=== PATIENT | male | born 1995 | race African-American/Black ===

== ENCOUNTER 2016-10-25 15:59 | Emergency (ER) | payer MEDICAID ==
[~2016-10-25] VITALS: Ht 180.3 cm; Wt 75.0 kg
[~2016-10-25 15:59] MED LIST: ACYC400T PO; HIVPAK
[2016-10-25 16:02] VITALS: BP 124/75; PULSE 85; RESP 16; TEMP 98.3; O2SAT 97
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
[2016-10-25 16:12] VITALS: RESP 16; O2SAT 97
[2016-10-25] MEDS ORDERED: SODIUM CHLORIDE 0.9% FLUSH 5 ML FLUSH IVF PRN (16:15)
[2016-10-25 16:48] LABS: AUTOMATED NEUTROPHIL # 4.2 TH/MM3 (1.8-7.7); BASOPHIL % 0.5 % (0.0-2.0); EOSINOPHIL # 0.1 TH/MM3 (0-0.4); EOSINOPHIL % 1.8 % (0.0-4.0); HEMO FLAGS DIFF FINAL; LYMPH % 20.1 % (9.0-44.0); LYMPHOCYTE # 1.2 TH/MM3 (1.0-4.8); MEAN CELL VOLUME 83.8 FL (80.0-100.0); MEAN CORPUSCULAR HEMOGLOBIN 27.9 PG (27.0-34.0); MEAN CORPUSCULAR HGB CONC 33.3 % (32.0-36.0); MONO % 4.9 % (0.0-8.0); NEUT % 72.7 % (16.0-70.0); PLATELET COUNT 236 TH/MM3 (150-450); RED BLOOD COUNT 5.13 MIL/MM3 (4.50-5.90); RED CELL DISTRIBUTION WIDTH 13.1 % (11.6-17.2); WHITE BLOOD COUNT 5.8 TH/MM3 (4.0-11.0)
[2016-10-25 17:17] LABS: ANION GAP 7 MEQ/L (5-15); BICARBONATE 29.4 MEQ/L (21.0-32.0); BLOOD UREA NITROGEN 6 MG/DL (7-18); CHLORIDE 106 MEQ/L (98-107); GLOMERULAR FILTRATION RATE 113 ML/MIN (>89); POTASSIUM 3.4 MEQ/L (3.5-5.1); SODIUM (NA) 142 MEQ/L (136-145)
[2016-10-25 17:26] LABS: AMPHETAMINE, URINE NEG (NEG); BARBITURATES, URINE NEG (NEG); COCAINE, URINE NEG (NEG)
[2016-10-25] MEDS ORDERED: LEVE500 PO (18:08)
[2016-10-25] MEDS ORDERED: POTASSIUM CHLORIDE 10 MEQ CONTROLLED RELEASE TAB PO ONE (18:15)
[2016-10-25] MEDS ORDERED: levETIRAcetam 500 MG TAB PO ONE (18:15)
[2016-10-25 18:31] VITALS: BP 126/78; PULSE 93; RESP 18; O2SAT 99
[2016-10-25] MEDS ORDERED: LEVE500S PO (18:42)
[2016-10-25] MEDS ORDERED: POTASSIUM CHLORIDE 25 MEQ EFFERVESCENT TAB PO ONE (18:45)
== END 2016-10-25 20:05 | disposition home or self-care (01) ==
LOC: NEPC 15:59
DX: G40.909 Epilepsy, unspecified, not intractable, without status epilepticus (principal); K21.9 Gastro-esophageal reflux disease without esophagitis; R56.9 Unspecified convulsions
CPT/HCPCS: 80048; 80307; 80320; 85025

== ENCOUNTER 2016-12-18 06:48 | Emergency (ER) | payer MEDICAID ==
[~2016-12-18] VITALS: Ht 180.3 cm; Wt 68.0 kg
[~2016-12-18 06:48] MED LIST changes: +LEVE500 PO; +LEVE500S PO
[2016-12-18 06:50] VITALS: BP 142/67; PULSE 77; RESP 16; TEMP 98.1; O2SAT 98
[2016-12-18] MEDS ORDERED: ZOFR4TAB PO (08:20)
--- NOTE | 2016-12-18 08:23 | PD ---
HPI Chief Complaint: Chest Pain Time Seen by Provider: 07:38 Travel History International Travel<30 days: No Contact w/Intl Traveler<30days: No Traveled to known affect area: No History of Present Illness HPI This patient complains of chest pain. Duration one day. Severity is moderate. He also has some nausea. No injury. No alleviating factors denies fever or cough. PFSH Past Medical History Cardiovascular Problems: Yes (RECURRENT CHEST PAIN UNKNOWN DIAGNOSIS) Developmental Delay: No Diminished Hearing: No GERD: Yes Genitourinary: Yes (GENITAL HERPES) Immune Disorder: Yes (HIV) Musculoskeletal: Yes (BACK PAIN) Immunizations Current: No Seizures: Yes Social History Alcohol Use: No Tobacco Use: No Substance Use: No (PATIENT DENIES) Allergies-Medications (Allergen,Severity, Reaction): Coded Allergies: Tomato (Verified Allergy, Severe, 10/24/16) *MDRO Multi-Drug Resistant Organism (Verified Adverse Reaction, Unknown, ) MRSA (wound) - 09/2015 Reported Meds & Prescriptions Reported Meds & Active Scripts Active Keppra Liq (Levetiracetam) 500 Mg/5 Ml Soln 500 Mg PO BID 30 Days Keppra (Levetiracetam) 500 Mg Tab 500 Mg PO BID Acyclovir 400 Mg Tab 400 Mg PO TID 10 Days Acyclovir 400 Mg Tab 400 Mg PO TID 10 Days Reported Hiv Support Therapy Pack (Nutritional Supplements) 1 Andrea Andrea Review of Systems HENT: No: Headaches Cardiovascular: Positive: Chest Pain or Discomfort Respiratory: No: Cough Gastrointestinal: Positive: Nausea Physical Exam Narrative GENERAL: Well-nourished, well-developed patient. SKIN: Warm and dry. HEAD: Normocephalic. EYES: No scleral icterus. No injection or drainage. NECK: Supple, trachea midline. No JVD or lymphadenopathy. CARDIOVASCULAR: Regular rate and rhythm without murmurs, gallops, or rubs. RESPIRATORY: Breath sounds equal bilaterally. No accessory muscle use. GASTROINTESTINAL: Abdomen soft, non-tender, nondistended. MUSCULOSKELETAL: No cyanosis, or edema. BACK: Nontender without obvious deformity. No CVA tenderness. Data Data Last Documented VS Vital Signs Date Time Temp Pulse Resp B/P Pulse Ox O2 Delivery O2 Flow Rate FiO2 12/18/16 07:09 81 18 99 Room Air 12/18/16 06:50 98.1 142/67 Orders Ondansetron Odt (Zofran Odt) (12/18/16 08:30) MDM Medical Decision Making Medical Screen Exam Complete: Yes Emergency Medical Condition: Yes Medical Record Reviewed: Yes Differential Diagnosis Differential diagnosis includes NM, angina, pericarditis, pleurisy, GERD, anxiety. Narrative Course I have reviewed the patient's electronic medical record. Frequent visitor to the ER. He was here 10 times last year I reviewed his EKG which is normal On exam he has clear-cut reproducible chest wall tenderness Does not require further cardiac eval Supportive care discussed Gave him a dose of Zofran and prescription for same Stable for outpatient follow-up Diagnosis Primary Impression: Musculoskeletal chest pain Additional Impression: Nausea Additional Instructions: The patient was advised to follow up with their physician and return if they worsen. Med/Other Pt SpecificInfo: Prescription(s) given Scripts Ondansetron (Zofran)4 Mg Tab4 Mg PO Q6HR PRN (NAUSEA OR VOMITING) #12 TAB Ref 0 Prov:Brennan Zepeda MD 12/18/16 Disposition: 01 DISCHARGE HOME Condition: Stable Brennan Zepeda MD Dec 18, 2016 08:23
[2016-12-18] MEDS ORDERED: ONDANSETRON ODT 4 MG TAB PO ONE (08:30)
[2016-12-18 08:44] VITALS: BP 117/79
--- NOTE | 2016-12-19 20:32 | EKG ---
Date Performed: 12/18/2016 Time Performed: 07:19:43 PTAGE: 20 years EKG: Sinus rhythm NORMAL ECG PREVIOUS TRACING : 01/29/2016 18.24 Compared to prior tracing no significant change DOCTOR: Nav Grullon Interpretating Date/Time 12/19/2016 20:31:07
[2017-04-10] MEDS ORDERED: ACYC400T PO ×2 (12:19→12:27)
== END 2016-12-18 08:45 | disposition home or self-care (01) ==
LOC: NEPE 06:48
DX: R07.89 Other chest pain (principal)
CPT/HCPCS: 93005; 99283

== ENCOUNTER 2016-12-21 23:10 | Emergency (ER) | payer MEDICAID ==
[~2016-12-21] VITALS: Ht 180.3 cm; Wt 72.0 kg
[~2016-12-21 23:10] MED LIST changes: +ZOFR4TAB PO
[2016-12-21 23:12] VITALS: BP 136/76; PULSE 81; RESP 16; TEMP 98; O2SAT 98
[2016-12-22] MEDS ORDERED: NAPR500T PO (02:08)
--- NOTE | 2016-12-22 02:08 | PD ---
HPI Chief Complaint: Fall Time Seen by Provider: 00:52 Travel History International Travel<30 days: No Contact w/Intl Traveler<30days: No Traveled to known affect area: No History of Present Illness HPI This is a 20-year-old male who presents to the emergency department having gotten dizzy, slipped and fell hitting his back on the bathtub. He reports moderate severity low back pain, constant, worse with walking, improved with rest. He denies any numbness or weakness. He has no other injuries. He did not pass out. PFSH Past Medical History Cardiovascular Problems: Yes (RECURRENT CHEST PAIN UNKNOWN DIAGNOSIS) Developmental Delay: No Diminished Hearing: No GERD: Yes Genitourinary: Yes (GENITAL HERPES) Immune Disorder: Yes (HIV) Musculoskeletal: Yes (BACK PAIN) Immunizations Current: No Seizures: Yes Past Surgical History Surgical History: No Previous Surgery Social History Alcohol Use: No Tobacco Use: No Substance Use: No (PATIENT DENIES) Allergies-Medications (Allergen,Severity, Reaction): Coded Allergies: Tomato (Verified Allergy, Severe, 12/22/16) *MDRO Multi-Drug Resistant Organism (Verified Adverse Reaction, Unknown, ) MRSA (wound) - 09/2015 Reported Meds & Prescriptions Reported Meds & Active Scripts Active Zofran (Ondansetron HCl) 4 Mg Tab 4 Mg PO Q6HR PRN Keppra Liq (Levetiracetam) 500 Mg/5 Ml Soln 500 Mg PO BID 30 Days Keppra (Levetiracetam) 500 Mg Tab 500 Mg PO BID Acyclovir 400 Mg Tab 400 Mg PO TID 10 Days Acyclovir 400 Mg Tab 400 Mg PO TID 10 Days Reported Hiv Support Therapy Pack (Nutritional Supplements) 1 Andrea Andrea Review of Systems Except as stated in HPI: all other systems reviewed are Neg Physical Exam Narrative GENERAL:Well appearing, no acute distress SKIN: Warm and dry. HEAD: Atraumatic. Normocephalic. EYES: Pupils equal and round. No injection or drainage. ENT: Moist mucous membranes NECK: Trachea midline. CARDIOVASCULAR: Regular rate and rhythm. No murmur appreciated. RESPIRATORY: Clear to auscultation. Breath sounds equal bilaterally. GASTROINTESTINAL: Abdomen soft, non-tender, nondistended. MUSCULOSKELETAL: Tender to palpation along the midline lumbar spine NEUROLOGICAL: Awake and alert. No obvious cranial nerve deficits. Moving all extremities. PSYCHIATRIC: Appropriate mood and affect; insight and judgment normal. Data Data Last Documented VS Vital Signs Date Time Temp Pulse Resp B/P Pulse Ox O2 Delivery O2 Flow Rate FiO2 12/22/16 00:49 14 12/21/16 23:12 98.0 81 136/76 98 Room Air Orders Spine, Lumbar - Ltd (Ap & Lat) (12/22/16 ) MDM Medical Decision Making Medical Screen Exam Complete: Yes Emergency Medical Condition: Yes Interpretation(s) Afebrile, no tachycardia, normotensive Lumbar spine plain film: No acute fracture Differential Diagnosis Compression fracture, spinous process fracture, contusion Narrative Course This is a 20-year-old male who presents to the emergency department having fallen injuring his low back in the shower. He is focally tender along the midline of the lumbar spine. He has a normal neurologic exam. X-ray was obtained which demonstrates no acute fracture. Patient will be discharged home. Diagnosis Primary Impression: Lumbar contusion Qualified Code: S30.0XXA - Lumbar contusion, initial encounter Patient Instructions: General Instructions Additional Instructions: If you develop weakness of your legs, difficulty walking, numbness of her legs or your genital or rectal area, loss of your bowel or bladder, or difficulty urinating return to the emergency department immediately. Followup with your primary care physician in one week if your symptoms have not improved. Med/Other Pt SpecificInfo: Prescription(s) given Scripts Naproxen 500 Mg Poi026 Mg PO BID PRN (PAIN SCALE 4 TO 10) #20 TAB Prov:Luba Cramer MD 12/22/16 Disposition: 01 DISCHARGE HOME Condition: Stable Luba Cramer MD Dec 22, 2016 02:08
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
[2017-04-10] MEDS ORDERED: ACYC400T PO ×2 (12:19→12:27)
== END 2016-12-22 02:29 | disposition home or self-care (01) ==
LOC: NEPC 23:10
DX: S30.0XXA Contusion of lower back and pelvis, initial encounter (principal); W18.2XXA Fall in (into) shower or empty bathtub, initial encounter; Y93.F9 Activity, other caregiving; Y92.9 Unspecified place or not applicable; Y99.9 Unspecified external cause status
CPT/HCPCS: 72100; 99284

== ENCOUNTER → 2017-02-03 | Outpatient (CLI) | payer MEDICAID ==
[~2017-02-03] MED LIST changes: +BACT800T5 PO; +IBUP800T23 PO; +NAPR500T PO; +PANT20 PO
--- NOTE | 2017-02-03 19:35 | MG ---
cc: GAYLE SALDIVAR M.D. Lab No: Date: 02/03/2017 Age: Sex: M Race: Cc. TEST NUMBER [id number] TECHNIQUE 17 channel EEG. DESCRIPTION The background rhythm reveals symmetrical alpha rhythm. Frequency is about 9 Hz. Amplitude is 20 microvolts. There is some eye movement artifact and some muscle artifact. There are no lateralizing features seen. No epileptiform discharges. Photic stimulation results in a symmetrical driving response. Hyperventilation does not elicit any abnormalities. During drowsiness there is some slowing in the theta range at about 6-7 Hz. INTERPRETATION Normal EEG. MD BEN Yoo/DIMAS /7:14 PM /7:32 PM
== END ==
LOC: HEEG 05:59
PROVIDERS: ATTEND Specialist
DX: R56.9 Unspecified convulsions (principal)
CPT/HCPCS: 95819

== ENCOUNTER 2017-02-20 09:17 | Emergency (ER) | payer MEDICAID ==
[~2017-02-20] VITALS: Ht 180.3 cm; Wt 73.5 kg
[~2017-02-20 09:17] MED LIST changes: -BACT800T5 PO; -IBUP800T23 PO; -PANT20 PO
[2017-02-20 09:18] VITALS: BP 120/76; PULSE 78; RESP 20; TEMP 98.5; O2SAT 97
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
[2017-02-20] MEDS ORDERED: IBUP800T23 PO (09:53)
[2017-04-10] MEDS ORDERED: ACYC400T PO ×2 (12:19→12:27)
== END 2017-02-20 10:07 | disposition home or self-care (01) ==
LOC: NEPK 09:17
DX: S00.81XA Abrasion of other part of head, initial encounter (principal); K21.9 Gastro-esophageal reflux disease without esophagitis; Z21 Asymptomatic human immunodeficiency virus [HIV] infection status; V29.9XXA Motorcycle rider (driver) (passenger) injured in unspecified traffic accident, initial encounter; Y93.89 Activity, other specified; Y92.410 Unspecified street and highway as the place of occurrence of the external cause; Y99.8 Other external cause status
CPT/HCPCS: 99282

== ENCOUNTER 2017-02-27 15:08 | Emergency (ER) | payer MEDICAID ==
[~2017-02-27] VITALS: Ht 180.3 cm; Wt 74.0 kg
[~2017-02-27 15:08] MED LIST changes: -ACYC400T PO; -HIVPAK; +IBUP800T23 PO; -LEVE500 PO; -LEVE500S PO; -NAPR500T PO; -ZOFR4TAB PO
[2017-02-27 15:10] VITALS: BP 145/83; PULSE 75; RESP 15; TEMP 98.8; O2SAT 99
--- NOTE | 2017-02-27 15:13 | PD ---
Physical Exam Date Seen by Provider: February 27, 2017 Time Seen by Provider: 15:12 Narrative 21 YOBM C/O R NECK ABSCESS FOR 5 DAYS VVS WAITING FOR BED PLACEMENT Data Data Last Documented VS Vital Signs Date Time Temp Pulse Resp B/P Pulse Ox O2 Delivery O2 Flow Rate FiO2 02/27/17 15:10 98.8 75 15 145/83 99 MDM Medical Record Reviewed: Yes Supervised Visit with ANEL: No Nate Alcaraz February 27, 2017 15:13
--- NOTE | 2017-02-27 15:16 | PD ---
HPI . hair bump x 5 days Chief Complaint: Laceration/Skin Injury Time Seen by Provider: 15:16 Travel History International Travel<30 days: No Contact w/Intl Traveler<30days: No Traveled to known affect area: No History of Present Illness HPI 21-year-old male with seizure disorder here with complaints of a hair bump on the right side of his cheek for the past 5 days. He tells me that his roommate tried to pop it and not much really came out of it. He is here because it is now causing pain radiating into his mouth when he is eating. He denies any fever or chills. He has no other complaints. He does use clippers to cut his facial hairs. PFSH Past Medical History Cardiovascular Problems: Yes (RECURRENT CHEST PAIN UNKNOWN DIAGNOSIS) Developmental Delay: No Diminished Hearing: No GERD: Yes Genitourinary: Yes (GENITAL HERPES) Immune Disorder: Yes (HIV) Musculoskeletal: Yes (BACK PAIN) Immunizations Current: No Seizures: Yes Social History Alcohol Use: No Tobacco Use: No Substance Use: No ( ) Allergies-Medications (Allergen,Severity, Reaction): Coded Allergies: Tomato (Verified Allergy, Severe, 02/27/17) *MDRO Multi-Drug Resistant Organism (Verified Adverse Reaction, Unknown, ) MRSA (wound) - 09/2015 Reported Meds & Prescriptions Reported Meds & Active Scripts Active Bactrim DS (Sulfamethoxazole-Trimethoprim) 800-160 Mg Tab 1 Tab PO BID Ibuprofen 800 Mg Tab 800 Mg PO TID Review of Systems General / Constitutional: No: Fever Eyes: No: Visual changes HENT: No: Headaches Cardiovascular: No: Chest Pain or Discomfort Respiratory: No: Shortness of Breath Gastrointestinal: No: Abdominal Pain Genitourinary: No: Dysuria Musculoskeletal: No: Pain Skin: Positive Other (right sided face cellulitis/early abscess), No Rash Neurologic: No: Weakness Psychiatric: No: Depression Endocrine: No: Polydipsia Hematologic/Lymphatic: No: Easy Bruising Physical Exam Narrative GENERAL: AAO x 3, no acute distress, Well-nourished, well-developed patient. SKIN: Warm and dry. No visible rashes or bruising. Small 1 cm induration on the right lower jaw without any fluctuance. There is no drainage present. There is a small opening with clotting blood. no temperature variation/ no surrounding erythema HEAD: Normocephalic and atraumatic. EYES: No scleral icterus. No injection or drainage. EOM intact, PERRLA ENT: No nasal drainage noted. Mucous membranes pink. Airway patent. oropharynx without any acute abn NECK: Supple, trachea midline. No JVD. no lymphadenopathy CARDIOVASCULAR: Regular rate and rhythm without murmurs, gallops, or rubs. RESPIRATORY: Breath sounds equal bilaterally. No accessory muscle use. No rhonchi or rales. GASTROINTESTINAL: Visual inspection normal EXTREMITIES: No cyanosis or edema. BACK: Nontender without obvious deformity. No CVA tenderness. PSYCH: AAO x 3, normal affect. Data Data Last Documented VS Vital Signs Date Time Temp Pulse Resp B/P Pulse Ox O2 Delivery O2 Flow Rate FiO2 02/27/17 15:10 98.8 75 15 145/83 99 MDM Medical Decision Making Medical Screen Exam Complete: Yes Emergency Medical Condition: Yes Medical Record Reviewed: Yes Differential Diagnosis Facial cellulitis, early abscess, less likely abscess, Folliculitis Narrative Course This is a 21-year-old male here with what appears to be a folliculitis and possible early abscess formation. I discussed these findings with him. Unfortunately there is nothing for incision and drainage. Advise warm compresses to see if anything forms. If it does, patient will return to the emergency department. In the meantime I will provide him with Bactrim to cover MRSA. I advised [id number] Tylenol and Motrin as needed for pain. Patient verbalized understanding of instructions, questions were answered, and thanked me for their care. I advised them if their condition worsens, please return to the nearest emergency room for further care. Diagnosis Primary Impression: Folliculitis Additional Impression: Cellulitis Qualified Code: L03.211 - Cellulitis of face Patient Instructions: General Instructions Additional Instructions: You can try to use warm compresses to the area to see if a head develops. If it does, you can come back to the emergency department to have it drained. [place] for worsening signs of infection which include fever, increased redness , increased warmth, purulent drainage, increased swelling or streaking. If any of these develop, please go to the nearest emergency room. Please return to emergency department if your symptoms return or worsen. Follow up with your primary care provider. Take medications as prescribed. You can use ibuprofen or tylenol as needed for pain. Med/Other Pt SpecificInfo: Prescription(s) given Scripts Sulfamethoxazole-Trimethoprim (Bactrim DS)800-160 Mg Tab1 Tab PO BID #20 TAB Prov:Brennan Zepeda MD 02/27/17 Disposition: 01 DISCHARGE HOME Condition: Stable Karrie Juan February 27, 2017 15:16
[2017-02-27] MEDS ORDERED: BACT800T5 PO (15:19)
[2017-04-10] MEDS ORDERED: ACYC400T PO ×2 (12:19→12:27)
== END 2017-02-27 15:31 | disposition home or self-care (01) ==
LOC: NEPK 15:08
DX: L73.9 Follicular disorder, unspecified (principal); L03.211 Cellulitis of face
CPT/HCPCS: 99282

== ENCOUNTER 2017-04-07 10:22 | Emergency (ER) | payer MEDICAID ==
[~2017-04-07] VITALS: Ht 180.3 cm; Wt 70.0 kg
[~2017-04-07 10:22] MED LIST changes: +BACT800T5 PO; -IBUP800T23 PO
[2017-04-07 10:23] VITALS: BP 135/74; PULSE 84; RESP 15; TEMP 98.2; O2SAT 98
--- NOTE | 2017-04-07 11:01 | PD ---
HPI Chief Complaint: Abdominal Pain Time Seen by Provider: 11:01 Travel History International Travel<30 days: No Contact w/Intl Traveler<30days: No Traveled to known affect area: No History of Present Illness HPI 21-year-old male came to the emergency room with history of abdominal pain in the periumbilical and epigastric area. Patient says that this has been going on for past 2 days. No history of vomiting or diarrhea. However when he went to the restroom this morning he also noticed 2 bumps on his penis which also made him concerned and that's the additional history wanted to be addressed as well. Vital signs otherwise stable. Patient claims to be otherwise a healthy person. [facility] Past Medical History Narrative Medical List of his past medical, surgical, social and family history was reviewed from the nursing note. Cardiovascular Problems: Yes (RECURRENT CHEST PAIN UNKNOWN DIAGNOSIS) Developmental Delay: No Diminished Hearing: No GERD: Yes Genitourinary: Yes (GENITAL HERPES) Immune Disorder: Yes (HIV) Musculoskeletal: Yes (BACK PAIN) Immunizations Current: No Seizures: Yes ?: Not Social History Alcohol Use: No Tobacco Use: No Substance Use: No ( ) Allergies-Medications (Allergen,Severity, Reaction): Coded Allergies: Tomato (Verified Allergy, Severe, 03/02/17) *MDRO Multi-Drug Resistant Organism (Verified Adverse Reaction, Unknown, ) MRSA (wound) - 09/2015 Comments List of his allergies reviewed from the nursing note. Reported Meds & Prescriptions Reported Meds & Active Scripts Active Protonix (Pantoprazole Sodium) 20 Mg Tab 20 Mg PO DAILY Bactrim DS (Sulfamethoxazole-Trimethoprim) 800-160 Mg Tab 1 Tab PO BID Narrative Medication List of his home medications reviewed from the nursing note Review of Systems Except as stated in HPI: all other systems reviewed are Neg Physical Exam Narrative GENERAL: Awake, alert, anxious SKIN: Focused skin assessment warm/dry. HEAD: Atraumatic. Normocephalic. EYES: Pupils equal and round. No scleral icterus. No injection or drainage. ENT: No nasal bleeding or discharge. Mucous membranes pink and moist. NECK: Trachea midline. No JVD. CARDIOVASCULAR: Regular rate and rhythm. No murmur appreciated. RESPIRATORY: No accessory muscle use. Clear to auscultation. Breath sounds equal bilaterally. GASTROINTESTINAL: Abdomen soft, non-tender, nondistended. Hepatic and splenic margins not palpable. : Patient has some bumpy papules on the glans penis on the side to the posterior part. No discharge and these are nontender. MUSCULOSKELETAL: No obvious deformities. No clubbing. No cyanosis. No edema. NEUROLOGICAL: Awake and alert. No obvious cranial nerve deficits. Motor grossly within normal limits. Normal speech. PSYCHIATRIC: Appropriate mood and affect; insight and judgment normal. Data Data Last Documented VS Vital Signs Date Time Temp Pulse Resp B/P Pulse Ox O2 Delivery O2 Flow Rate FiO2 04/07/17 10:23 98.2 84 15 135/74 98 Orders Urinalysis - C+S If Indicated (04/07/17 10:32) Gc And Chlamydia Pcr (04/07/17 11:05) Labs Laboratory Tests Test 04/07/17 04/07/17 10:37 11:30 Urine Color YELLOW Urine Turbidity CLEAR Urine pH 6.5 Urine Specific [place] 1.022 Urine Protein NEG mg/dL Urine Glucose (UA) NEG mg/dL Urine Ketones NEG mg/dL Urine Occult Blood NEG Urine Nitrite NEG Urine Bilirubin NEG Urine Urobilinogen 2.0 MG/DL Urine Leukocyte Esterase NEG Urine RBC 1 /hpf Urine WBC 1 /hpf Urine Mucus FEW /lpf Microscopic Urinalysis Comment CULT NOT INDICATED Chlamydia trachomatis DNA DETECTED (PCR) Neisseria gonorrhoeae DNA NOT DETECTED (PCR) MDM Medical Decision Making Medical Screen Exam Complete: Yes Emergency Medical Condition: Yes Medical Record Reviewed: Yes Differential Diagnosis Pearly penile papule, gastritis Narrative Course 11:30 AM UA is back and within normal limit. Patient will be discharged home. Procedures EKG Prior to Arrival: No Diagnosis Primary Impression: Pearly penile papules Additional Impression: Gastritis Qualified Code: K29.00 - Acute gastritis without hemorrhage, unspecified gastritis type Referrals: Primary Care Physician Additional Instructions: Please return to the ER if the condition worsens or any other new concerns. With your primary care. Do not drink alcohol, acidic food-like lemonade, orange juice, lying, tomato, ketchup, strawberries etc. till the medication is completed. If symptoms do not worsen or have your primary care for you to a GI specialist. Take the medication as per the prescription direction. Med/Other Pt SpecificInfo: Prescription(s) given Scripts Pantoprazole (Protonix)20 Mg Tab20 Mg PO DAILY #30 TAB Ref 0 Prov:Agueda Skelton MD 04/07/17 Disposition: 01 DISCHARGE HOME Condition: Stable Agueda Skelton MD Apr 07, 2017 11:01
[2017-04-07 11:07] LABS: BLOOD, URINE NEG (NEG); COMMENT (UR) CULT NOT INDICATED; CULTURE IF INDICATED CULT NOT INDICATED; GLUCOSE,URINE NEG (NEG); KETONE, URINE NEG (NEG); MUCUS URINE FEW /lpf (OCC); NITRITE,URINE NEG (NEG); PH, URINE 6.5 (5.0-8.5); URINE COLOR YELLOW (YELLW/STRAW)
[2017-04-07] MEDS ORDERED: PANT20 PO (11:35)
[2017-04-07 13:39] LABS: CHLAMYDIA PCR DETECTED (NOT DETECT); NEISSERIA PCR NOT DETECTED (NOT DETECT)
[2017-04-10] MEDS ORDERED: ACYC400T PO ×2 (12:19→12:27)
== END 2017-04-07 11:58 | disposition home or self-care (01) ==
LOC: NEPD 10:22
DX: K29.00 Acute gastritis without bleeding (principal); R23.8 Other skin changes
CPT/HCPCS: 81001; 87491; 87591; 99283

== ENCOUNTER → 2017-04-21 | Outpatient (CLI) | payer MEDICAID ==
[~2017-04-21] MED LIST changes: +ACYC400T PO; +PANT20 PO
--- NOTE | 2017-04-21 17:22 | RADRPT ---
EXAM DATE/TIME: 04/21/2017 16:27 [facility] COMPARISON: MRI BRAIN W & W/O CONTRAST, April 15, 2015, 8:38. INDICATIONS : Cephalgia. MEDICAL HISTORY : HIV. Seizures. SURGICAL HISTORY : None. ENCOUNTER: Initial ACUITY: 1 day PAIN SCORE: 5/10 LOCATION: cranial TECHNIQUE: Multiplanar, multisequence MRI of the brain was performed without contrast. FINDINGS: CEREBRUM: The ventricles are normal for age. No evidence of midline shift, mass lesion, hemorrhage or acute in farction. No extraaxial fluid collections are seen. The pituitary gland and suprasellar cistern are normal in configuration. WHITE MATTER: No significant signal abnormalities are seen in the white matter. POSTERIOR FOSSA: The cerebellum and brainstem are intact. The 4th ventricle is midline. The cerebellopontine angle is unremarkable. The cerebellar tonsils are normal in position. DIFFUSION IMAGING: No focal areas of restricted diffusion are seen. No evidence of acute infarction. EXTRACRANIAL: The visualized portions of the orbits and paranasal sinuses are unremarkable. CONCLUSION: 1. No acute intracranial abnormality. Terence Lopez MD on April 21, 2017 at 17:18 Board Certified Radiologist. This report was verified electronically.
== END ==
LOC: HRAD 15:35
PROVIDERS: ATTEND Specialist
DX: R51 Headache (principal); Z21 Asymptomatic human immunodeficiency virus [HIV] infection status
CPT/HCPCS: 70551

== ENCOUNTER 2017-07-14 14:23 | Emergency (ER) | payer MEDICAID ==
[~2017-07-14] VITALS: Ht 180.3 cm; Wt 70.0 kg
[~2017-07-14 14:23] MED LIST changes: -BACT800T5 PO; +MUPI2OIN TOPICAL; +ZITHTAB2 PO
[2017-07-14 14:32] VITALS: BP 123/61; PULSE 83; RESP 16; TEMP 98.6; O2SAT 98
[2017-07-14] MEDS ORDERED: LEVE500S PO ×2 (14:36→16:35)
[2017-07-14] MEDS ORDERED: SODIUM CHLOR 0.9% 1000 ML INJ 1,000 ML IV ONE (14:56)
[2017-07-14] MEDS ORDERED: SODIUM CHLORIDE 0.9% FLUSH 10 ML FLUSH IVF PRN (15:00)
[2017-07-14] MEDS ORDERED: LORazepam 2 MG/ML VIAL IVS ONE (15:00)
[2017-07-14] MEDS ORDERED: levETIRAcetam 1000 MG INJ 100 ML IV ONE (15:00)
--- NOTE | 2017-07-14 15:02 | PD ---
Physical Exam Date Seen by Provider: Jul 14, 2017 Time Seen by Provider: 15:00 Narrative 21-year-old Afro-[place]ian male with history of seizure disorder normally treated with Keppra brought in by EMS status post grand mal seizure. Patient states he has been off his Keppra for 3 weeks as he gave and the pill form not the liquid form. Patient is complaining of right facial pain, but denies dental injury or biting of the tongue or cheek. He states he is overall sore but otherwise has no acute injury. He was brought in backboarded and collared. He is not complaining of back pain or neck pain. Patient has a history of MRSA and is allergic to tomatoes. Data Data Last Documented VS Vital Signs Date Time Temp Pulse Resp B/P (MAP) Pulse Ox O2 Delivery O2 Flow Rate FiO2 07/14/17 14:32 98.6 83 16 123/61 (81) 98 Orders Orders Complete Blood Count With Diff (07/14/17 14:56) Drug Screen, Random Urine (07/14/17 14:56) Electrocardiogram (07/14/17 ) Ecg Monitoring (07/14/17 14:56) Iv Access Insert/Monitor (07/14/17 14:56) Oximetry (07/14/17 14:56) Comprehensive Metabolic Panel (07/14/17 14:56) Sodium Chlor 0.9% 1000 Ml Inj (Ns 1000 M (07/14/17 14:56) Sodium Chloride 0.9% Flush (Ns Flush) (07/14/17 15:00) Lorazepam Inj (Ativan Inj) (07/14/17 15:00) Urinalysis - C+S If Indicated (07/14/17 14:56) Ct Facial Bones W/O Iv Cont (07/14/17 14:56) Lactic Acid (07/14/17 14:56) Levetiracetam 1000 Mg Inj (Keppra 1000 M (07/14/17 15:00) MDM Medical Record Reviewed: Yes Supervised Visit with ANEL: Yes Differential Diagnosis Seizure. Facial contusion. Possible fracture. Narrative Course Patient is medically stable at time of exam. Labs ordered including CBC, CMP, urinalysis, drug screen, and lactic acid. CT of the facial bones ordered. CT of the brain is not felt warranted. IV access is obtained patient is given 1 mg lorazepam IV as well as 1000 mg Keppra IV. Patient is awaiting bed placement. Condition: Stable Tlaon Duran Jul 14, 2017 15:02
[2017-07-14 15:33] LABS: AUTOMATED NEUTROPHIL # 1.9 TH/MM3 (1.8-7.7); BASOPHIL % 0.5 % (0.0-2.0); EOSINOPHIL # 0.1 TH/MM3 (0-0.4); EOSINOPHIL % 3.9 % (0.0-4.0); HEMATOCRIT 42.7 % (39.0-51.0); HEMO FLAGS DIFF FINAL; LYMPH % 31.9 % (9.0-44.0); LYMPHOCYTE # 1.1 TH/MM3 (1.0-4.8); MEAN CELL VOLUME 85.2 FL (80.0-100.0); MEAN CORPUSCULAR HGB CONC 32.8 % (32.0-36.0); MONO % 10.8 % (0.0-8.0); NEUT % 52.9 % (16.0-70.0); PLATELET COUNT 227 TH/MM3 (150-450); RED BLOOD COUNT 5.01 MIL/MM3 (4.50-5.90); RED CELL DISTRIBUTION WIDTH 13.6 % (11.6-17.2); WHITE BLOOD COUNT 3.5 TH/MM3 (4.0-11.0)
--- NOTE | 2017-07-14 15:53 | RADRPT ---
EXAM DATE/TIME: 07/14/2017 15:14 [facility] COMPARISON: No previous studies available for comparison. INDICATIONS : Seizure today hit right side of face,bruising and abraisions. RADIATION DOSE: 36.48 CTDIvol (mGy) MEDICAL HISTORY : Seizures. Cardiovascular disease HIV. SURGICAL HISTORY : None. ENCOUNTER: Initial ACUITY: 1 day PAIN SCORE: 7/10 LOCATION: facial TECHNIQUE: Volumetric scanning of the facial bones was performed. Using automated exposure control and adjustme nt of the mA and/or kV according to patient size, radiation dose was kept as low as reasonably achiev able to obtain optimal diagnostic quality images. DICOM format image data is available electronicall y for review and comparison. FINDINGS: ORBITS: The orbital and infraorbital osseous structures are intact. The retroconal structures have a normal configuration. No radiopaque foreign bodies are seen. NASAL BONE: The nasal bone and maxillary spine are intact ZYGOMATIC ARCHES: Symmetric without evidence of fracture. SINUSES: The maxillary, ethmoid and frontal sinuses are intact. No air-fluid levels seen. NASAL CAVITY: The nasal septum is intact and midline. The lacrimal ducts are intact. SOFT TISSUES: No radiopaque foreign bodies seen. No soft-tissue swelling is seen. INTRACRANIAL: No intracranial air seen. CRIBIFORM PLATE: Grossly intact. CONCLUSION: 1. No acute facial fractures. Justin Banda MD on July 14, 2017 at 15:50 Board Certified Radiologist. This report was verified electronically.
[2017-07-14 15:58] LABS: ALT (GPT) 21 U/L (9-52); ANION GAP 4 MEQ/L (5-15); AST (GOT) 21 U/L (15-39); BICARBONATE 27.7 MEQ/L (21.0-32.0); BLOOD UREA NITROGEN 4 MG/DL (7-18); CHLORIDE 106 MEQ/L (98-107); GLOMERULAR FILTRATION RATE 117 ML/MIN (>89); POTASSIUM 3.8 MEQ/L (3.5-5.1); SODIUM (NA) 138 MEQ/L (136-145)
[2017-07-14 16:00] LABS: ALKALINE PHOSPHATASE 64 U/L (45-117); TOTAL BILIRUBIN ADULT 0.8 MG/DL (0.2-1.0)
[2017-07-14 16:01] VITALS: BP 110/60; PULSE 82; PULSE 84; RESP 18; O2SAT 98
[2017-07-14 16:18] LABS: BLOOD, URINE NEG (NEG); COMMENT (UR) CULT NOT INDICATED; CULTURE IF INDICATED CULT NOT INDICATED; GLUCOSE,URINE NEG (NEG); KETONE, URINE NEG (NEG); MUCUS URINE FEW /lpf (OCC); NITRITE,URINE NEG (NEG); PH, URINE 8.5 (5.0-8.5); URINE COLOR YELLOW (YELLW/STRAW)
--- NOTE | 2017-07-14 16:45 | PD ---
HPI Chief Complaint: Seizure Time Seen by Provider: 15:08 Travel History International Travel<30 days: No Contact w/Intl Traveler<30days: No Traveled to known affect area: No History of Present Illness HPI 21-year-old male that presents to the ED for evaluation of seizure. Patient apparently was found on the floor by bystanders. Patient does have a history of seizures and takes Keppra. Patient reports that he's been off his medication because he was prescribed pills instead of the liquid medication and he has not taken anything for about 3 weeks. Per patient she last had a seizure about a week ago and was seen at [facility] but per patient he was not given any medications. He denies any other medical issues. Seizure lasted possibly a couple minutes. He reports some pain in his right cheek otherwise unremarkable. No fevers chills or sweats. No chest pain or back pain. This does feel somewhat weak but he is back to baseline. Per ambulance report he was somewhat confused but not his back to baseline. The patient his pain is 2 out of 10. No other medical issues. PFSH Past Medical History Cardiovascular Problems: Yes (RECURRENT CHEST PAIN UNKNOWN DIAGNOSIS) Developmental Delay: No Diminished Hearing: No GERD: Yes Genitourinary: Yes (GENITAL HERPES) Immune Disorder: Yes (HIV) Musculoskeletal: Yes (BACK PAIN) Immunizations Current: No Seizures: Yes Tetanus Vaccination: > 5 Years Past Surgical History Surgical History: No Previous Surgery Social History Alcohol Use: No Tobacco Use: No Substance Use: No ( ) Allergies-Medications (Allergen,Severity, Reaction): Coded Allergies: tomato (Unverified Allergy, Severe, 07/14/17) *MDRO Multi-Drug Resistant Organism (Verified Adverse Reaction, Unknown, 07/14/17) MRSA (wound) - 09/2015 Reported Meds & Prescriptions Reported Meds & Active Scripts Active Keppra Liq (Levetiracetam) 500 Mg/5 Ml Soln 500 Mg PO BID Review of Systems Except as stated in HPI: all other systems reviewed are Neg Physical Exam Narrative GENERAL: SKIN: Warm and dry. HEAD: Atraumatic. Normocephalic. EYES: Pupils equal and round. No scleral icterus. No injection or drainage. ENT: No nasal bleeding or discharge. Mucous membranes pink and moist. Tongue is midline. No uvula deviation. NECK: Trachea midline. No JVD. CARDIOVASCULAR: Regular rate and rhythm. No murmurs, S3, S4. RESPIRATORY: No accessory muscle use. Clear to auscultation. Breath sounds equal bilaterally. GASTROINTESTINAL: Abdomen soft, non-tender, nondistended. Hepatic and splenic margins not palpable. MUSCULOSKELETAL: Extremities without clubbing, cyanosis, or edema. No obvious deformities. Full range of motion of the upper and lower extremities bilaterally. 2+ pulses bilaterally. NEUROLOGICAL: Awake and alert. No obvious cranial nerve deficits. Motor grossly within normal limits. Five out of 5 muscle strength in the arms and legs. Normal speech. PSYCHIATRIC: Appropriate mood and affect; insight and judgment normal. Data Data Last Documented VS Vital Signs Date Time Temp Pulse Resp B/P (MAP) Pulse Ox O2 Delivery O2 Flow Rate FiO2 07/14/17 16:01 82 18 110/60 (77) 98 Room Air 07/14/17 14:32 98.6 Orders Orders Complete Blood Count With Diff (07/14/17 14:56) Drug Screen, Random Urine (07/14/17 14:56) Electrocardiogram (07/14/17 ) Ecg Monitoring (07/14/17 14:56) Iv Access Insert/Monitor (07/14/17 14:56) Oximetry (07/14/17 14:56) Comprehensive Metabolic Panel (07/14/17 14:56) Sodium Chlor 0.9% 1000 Ml Inj (Ns 1000 M (07/14/17 14:56) Sodium Chloride 0.9% Flush (Ns Flush) (07/14/17 15:00) Lorazepam Inj (Ativan Inj) (07/14/17 15:00) Urinalysis - C+S If Indicated (07/14/17 14:56) Ct Facial Bones W/O Iv Cont (07/14/17 14:56) Lactic Acid (07/14/17 14:56) Levetiracetam 1000 Mg Inj (Keppra 1000 M (07/14/17 15:00) Labs Laboratory Tests Test 07/14/17 15:00 07/14/17 15:45 White Blood Count 3.5 TH/MM3 Red Blood Count 5.01 MIL/MM3 Hemoglobin 14.0 GM/DL Hematocrit 42.7 % Mean Corpuscular Volume 85.2 FL Mean Corpuscular Hemoglobin 28.0 PG Mean Corpuscular Hemoglobin Concent 32.8 % Red Cell Distribution Width 13.6 % Platelet Count 227 TH/MM3 Mean Platelet Volume 8.5 FL Neutrophils (%) (Auto) 52.9 % Lymphocytes (%) (Auto) 31.9 % Monocytes (%) (Auto) 10.8 % Eosinophils (%) (Auto) 3.9 % Basophils (%) (Auto) 0.5 % Neutrophils # (Auto) 1.9 TH/MM3 Lymphocytes # (Auto) 1.1 TH/MM3 Monocytes # (Auto) 0.4 TH/MM3 Eosinophils # (Auto) 0.1 TH/MM3 Basophils # (Auto) 0.0 TH/MM3 CBC Comment DIFF FINAL Differential Comment Blood Urea Nitrogen 4 MG/DL Creatinine 0.99 MG/DL Random Glucose 93 MG/DL Total Protein 9.2 GM/DL Albumin 3.8 GM/DL Calcium Level 8.7 MG/DL Alkaline Phosphatase 64 U/L Aspartate Amino Transf (AST/SGOT) 21 U/L Alanine Aminotransferase (ALT/SGPT) 21 U/L Total Bilirubin 0.8 MG/DL Sodium Level 138 MEQ/L Potassium Level 3.8 MEQ/L Chloride Level 106 MEQ/L Carbon Dioxide Level 27.7 MEQ/L Anion Gap 4 MEQ/L Estimat Glomerular Filtration Rate 117 ML/MIN Lactic Acid Level 1.3 mmol/L Urine Color YELLOW Urine Turbidity CLEAR Urine pH 8.5 Urine Specific [place] 1.028 Urine Protein 30 mg/dL Urine Glucose (UA) NEG mg/dL Urine Ketones NEG mg/dL Urine Occult Blood NEG Urine Nitrite NEG Urine Bilirubin NEG Urine Urobilinogen 4.0 MG/DL Urine Leukocyte Esterase SMALL Urine RBC 1 /hpf Urine WBC 5 /hpf Urine Mucus FEW /lpf Microscopic Urinalysis Comment CULT NOT INDICATED Urine Opiates Screen NEG Urine Barbiturates Screen NEG Urine Amphetamines Screen NEG Urine Benzodiazepines Screen NEG Urine Cocaine Screen NEG Urine Cannabinoids Screen NEG MDM Medical Decision Making Medical Screen Exam Complete: Yes Emergency Medical Condition: Yes Medical Record Reviewed: Yes Interpretation(s) CBC & BMP Diagram 07/14/17 15:00 Total Protein 9.2 H, Albumin 3.8, Calcium Level 8.7, Alkaline Phosphatase 64, Aspartate Amino Transf (AST/SGOT) 21, Alanine Aminotransferase (ALT/SGPT) 21, Total Bilirubin 0.8 Tox screen negative. Urine negative. CT of the facial bones show no sign of acute disease. Differential Diagnosis Seizure versus seizure disorder versus normal exam versus noncompliant Narrative Course 21-year-old male that presents to the ED for evaluation of seizure. Patient was properly examined and was found to have signs and symptoms consistent appears to be seizure. Patient at this time appears to be back to baseline. Labs were drawn. Labs were essentially unremarkable. Patient was initially seen by Talon Duran PA-C. Please refer to his note. I was asked to disposition patient pending labs and imaging. Labs and imaging here essentially unremarkable. Patient pressure. Patient was given loading dose of Keppra here. He was given a prescription for liquid keppra. Told to follow with neurologist outpatient. See ED worsening symptoms. Tylenol for pain. Seizure precautions were counseled to the patient. Diagnosis Primary Impression: Seizure disorder Patient Instructions: General Instructions Additional Instructions: Taking medication as prescribed. Follow with PCP. See ED if worsening symptoms. Do not drive for the next 6 months. Do not operate heavy machinery or get on a ladder. Med/Other Pt SpecificInfo: Prescription(s) given Scripts Levetiracetam Liq (Keppra Liq) 500 Mg/5 Ml Soln 500 MG PO BID for Control Seizures, #300 ML 0 Refills Prov: Hayes Salas MD 07/14/17 Disposition: 01 DISCHARGE HOME Condition: Stable Eric Dawkins Jul 14, 2017 16:45
[2017-07-14 17:28] VITALS: BP 108/56
--- NOTE | 2017-07-15 14:18 | EKG ---
Date Performed: 07/14/2017 Time Performed: 15:31:46 PTAGE: 21 years EKG: Sinus rhythm WITH SINUS ARRHYTHMIA EARLY REPOLARIZATION BORDERLINE ECG PREVIOUS TRACING : 12/18/2016 07.19 DOCTOR: Harmeet Gomez Interpretating Date/Time 07/15/2017 14:17:30
== END 2017-07-14 17:29 | disposition home or self-care (01) ==
LOC: NEPC 14:23
DX: G40.909 Epilepsy, unspecified, not intractable, without status epilepticus (principal); Z79.899 Other long term (current) drug therapy
CPT/HCPCS: 70486; 80053; 80307; 81001; 83605; 85025; 93005; 96361; 96374; 96375; 99285; J1953; J2060; J7030

== ENCOUNTER 2017-07-17 19:41 | Emergency (ER) | payer MEDICAID ==
[~2017-07-17] VITALS: Ht 180.3 cm; Wt 71.7 kg
[~2017-07-17 19:41] MED LIST changes: -ACYC400T PO; +LEVE500S PO; -MUPI2OIN TOPICAL; -PANT20 PO; -ZITHTAB2 PO
[2017-07-17 19:53] VITALS: BP 129/65; PULSE 79; RESP 18; TEMP 98.8; O2SAT 99
[2017-07-17] MEDS ORDERED: IBUP800T23 PO (21:17)
--- NOTE | 2017-07-17 21:19 | PD ---
HPI . Right face pain Chief Complaint: Injury Time Seen by Provider: 20:27 Travel History International Travel<30 days: No Contact w/Intl Traveler<30days: No Traveled to known affect area: No History of Present Illness HPI 21-year-old male patient presents emergency department for evaluation of right face pain that occurred 2 days ago during a football injury. Patient fell and hit his head. Denies any loss consciousness at that time. Patient was brought via EMS to the emergency department at that time and if CAT scan of the facial bones was ordered. The CAT scan was negative. Patient returns today due to the pain. Patient states the swelling has gone down significantly. He is using ice at home. He needs pain medications to help him sleep and a note to excuse him from football practice over the weekend. She denies any other physiological complaint. No fevers, chills, malaise, abdominal pain, nausea, vomiting, chest pain, shortness of breath or dysuria. PFSH Past Medical History Cardiovascular Problems: Yes (RECURRENT CHEST PAIN UNKNOWN DIAGNOSIS) Developmental Delay: No Diminished Hearing: No GERD: Yes Genitourinary: Yes (GENITAL HERPES) Immune Disorder: Yes (HIV) Musculoskeletal: Yes (BACK PAIN) Immunizations Current: No Seizures: Yes Social History Alcohol Use: No Tobacco Use: No Substance Use: No ( ) Allergies-Medications (Allergen,Severity, Reaction): Coded Allergies: tomato (Unverified Allergy, Severe, 07/17/17) *MDRO Multi-Drug Resistant Organism (Verified Adverse Reaction, Unknown, 07/17/17) MRSA (wound) - 09/2015 Reported Meds & Prescriptions Reported Meds & Active Scripts Active Ibuprofen 800 Mg Tab 800 Mg PO Q8H PRN Keppra Liq (Levetiracetam) 500 Mg/5 Ml Soln 500 Mg PO BID Review of Systems Except as stated in HPI: all other systems reviewed are Neg Physical Exam Narrative GENERAL: Well-nourished, well-developed 21-year-old male patient in no acute distress. SKIN: Mild edema noted to the right lateral aspect of his face proximal to right eye. Focused skin assessment warm/dry. HEAD: Normocephalic. Atraumatic EYES: No scleral icterus. No injection or drainage. NECK: Supple, trachea midline. No JVD or lymphadenopathy. CARDIOVASCULAR: Regular rate and rhythm without murmurs, gallops, or rubs. RESPIRATORY: Breath sounds equal bilaterally. No accessory muscle use. GASTROINTESTINAL: Abdomen soft, non-tender, nondistended. MUSCULOSKELETAL: Full range of motion to the jaw without pain. Teeth properly aligned when jaw closed. No cyanosis, or edema. BACK: Nontender without obvious deformity. No CVA tenderness. Data Data Last Documented VS Vital Signs Date Time Temp Pulse Resp B/P (MAP) Pulse Ox O2 Delivery O2 Flow Rate FiO2 07/17/17 19:53 98.8 79 18 129/65 (86) 99 MDM Medical Decision Making Medical Screen Exam Complete: Yes Emergency Medical Condition: Yes Differential Diagnosis Differential diagnoses include but not limited to periorbital cellulitis, contusion, fracture, pain exacerbation Narrative Course 21-year-old male patient presents emergency department for evaluation of continued pain after suffering a facial contusion 2 days ago. Patient states the swelling has gone down significantly but the pain persists. Patient with like a pain medication and note to excuse him from football practice over the weekend. Based on patient's symptoms, clinical presentation, radiological results from 2 days ago, vital sign review and physical exam it is not necessary to admit the patient to the hospital or keep the patient in the emergency department for further evaluation. Patient will be given a prescription for Motrin and note to excuse him from football practice over the weekend and discharged home. Diagnosis Primary Impression: Facial contusion Qualified Codes: S00.83XD - Contusion of other part of head, subsequent encounter Referrals: Primary Care Physician Patient Instructions: Contusion in Children (GEN), General Instructions Departure Forms: School Release, Return to School Date: Jul 20, 2017 Please excuse from school until (free text option): No sports or PE until Thursday, July 20, 2017 Tests/Procedures Additional Instructions: Please return to emergency department if your symptoms return or worsen. Follow up with your primary care provider. Take medications as prescribed. May use ice on area to reduce pain and swelling. Med/Other Pt SpecificInfo: Prescription(s) given Scripts Ibuprofen (Ibuprofen) 800 Mg Tab 800 MG PO Q8H Y for Pain/Inflammation, #20 TAB 0 Refills Prov: FadiCourtney 07/17/17 Disposition: 01 DISCHARGE HOME Condition: Stable Fadi,Courtney TALBOT Jul 17, 2017 21:18
== END 2017-07-17 21:35 | disposition home or self-care (01) ==
LOC: PHEFT 19:41
DX: S00.83XD Contusion of other part of head, subsequent encounter (principal); K21.9 Gastro-esophageal reflux disease without esophagitis; R56.9 Unspecified convulsions; Z21 Asymptomatic human immunodeficiency virus [HIV] infection status; W18.00XD Striking against unspecified object with subsequent fall, subsequent encounter; Y93.61 Activity, american tackle football
CPT/HCPCS: 99283

== ENCOUNTER 2017-07-26 07:44 | Emergency (ER) | payer MEDICAID, OTHER ==
[~2017-07-26 07:44] MED LIST changes: +IBUP800T23 PO
[2017-07-26 07:45] VITALS: BP 139/97; PULSE 98; RESP 14; TEMP 98.4; O2SAT 95
[2017-07-26 08:19] LABS: BLOOD, URINE NEG (NEG); COMMENT (UR) CULT NOT INDICATED; CULTURE IF INDICATED CULT NOT INDICATED; GLUCOSE,URINE NEG (NEG); KETONE, URINE NEG (NEG); MUCUS URINE MOD /lpf (OCC); NITRITE,URINE NEG (NEG); URINE COLOR YELLOW (YELLW/STRAW)
--- NOTE | 2017-07-26 08:40 | PD ---
HPI Chief Complaint: Complaint Time Seen by Provider: 08:32 Travel History International Travel<30 days: No Contact w/Intl Traveler<30days: No Traveled to known affect area: No History of Present Illness HPI 21-year-old male presents emergency department with complaint of dysuria and urinary frequency since . Denies penile discharge, pain. Denies testicular swelling or pain. Denies abdominal pain, bladder pain, nausea, vomiting. Reports a tender lump to his left groin area. Has not taken any medications or tried any treatments to alleviate his symptoms. Symptoms are mild in severity. No known aggravating or relieving factors. History of HIV. Allergies to tomatoes. Has no other medical complaints. No other modifying factors or associated signs and symptoms. PFSH Past Medical History Cardiovascular Problems: Yes (RECURRENT CHEST PAIN UNKNOWN DIAGNOSIS) Developmental Delay: No Diminished Hearing: No GERD: Yes Genitourinary: Yes (GENITAL HERPES) Immune Disorder: Yes (HIV) Musculoskeletal: Yes (BACK PAIN) Immunizations Current: No Seizures: Yes Social History Alcohol Use: No Tobacco Use: No Substance Use: No ( ) Allergies-Medications (Allergen,Severity, Reaction): Coded Allergies: tomato (Unverified Allergy, Severe, 07/17/17) *MDRO Multi-Drug Resistant Organism (Verified Adverse Reaction, Unknown, 07/17/17) MRSA (wound) - 09/2015 Reported Meds & Prescriptions Reported Meds & Active Scripts Active Ibuprofen 800 Mg Tab 800 Mg PO Q8H PRN Keppra Liq (Levetiracetam) 500 Mg/5 Ml Soln 500 Mg PO BID Review of Systems Except as stated in HPI: all other systems reviewed are Neg Physical Exam Narrative GENERAL: Well-nourished, well-developed black male patient, in no acute distress ; afebrile, nontoxic-appearing SKIN: Warm and dry. No rash. HEAD: Atraumatic. Normocephalic. EYES: Pupils equal and round. No scleral icterus. No injection or drainage. ENT: Mucosa pink and moist. NECK: Trachea midline. CARDIOVASCULAR: Regular rate. RESPIRATORY: No accessory muscle use. GASTROINTESTINAL: Abdomen soft, non-tender, nondistended. Hepatic and splenic margins not palpable. Bowel sounds are active 4 quadrants. Bladder nontender and nondistended. Left Groin lymphadenopathy with tenderness on palpation. MUSCULOSKELETAL: No obvious deformities. No clubbing. No cyanosis. No edema. BACK: No CVA tenderness NEUROLOGICAL: Awake and alert. Oriented 3. No obvious cranial nerve deficits. Motor grossly within normal limits. Normal speech. Moves all extremities. 5/5 strength to all extremities. PSYCHIATRIC: Appropriate mood and affect; insight and judgment normal. Data Data Last Documented VS Vital Signs Date Time Temp Pulse Resp B/P (MAP) Pulse Ox O2 Delivery O2 Flow Rate FiO2 07/26/17 08:20 75 18 07/26/17 07:45 98.4 139/97 (111) 95 Orders Orders Urinalysis - C+S If Indicated (07/26/17 07:56) Gc And Chlamydia Pcr (07/26/17 07:56) Azithromycin Powd Pack (Zithromax Powd P (07/26/17 08:45) Ceftriaxone Inj (Rocephin Inj) (07/26/17 08:45) Lidocaine 1% Inj (50 Ml) (Xylocaine 1% I (07/26/17 08:45) Metronidazole (Flagyl) (07/26/17 08:45) Ed Discharge Order (07/26/17 08:41) Labs Laboratory Tests Test 07/26/17 08:00 Urine Color YELLOW Urine Turbidity CLEAR Urine pH 6.0 Urine Specific [place] 1.026 Urine Protein TRACE mg/dL Urine Glucose (UA) NEG mg/dL Urine Ketones NEG mg/dL Urine Occult Blood NEG Urine Nitrite NEG Urine Bilirubin NEG Urine Urobilinogen 2.0 MG/DL Urine Leukocyte Esterase NEG Urine RBC 1 /hpf Urine WBC 4 /hpf Urine Mucus MOD /lpf Microscopic Urinalysis Comment CULT NOT INDICATED MDM Medical Decision Making Medical Screen Exam Complete: Yes Emergency Medical Condition: Yes Medical Record Reviewed: Yes Differential Diagnosis Urethritis, dysuria, chlamydia, gonorrhea, Trichomonas Narrative Course 21-year-old male with dysuria. He has lymphadenopathy to left groin area. Denies penile discharge. Patient is afebrile and nontoxic-appearing. Denies fever, vomiting. History of HIV. Patient has history of chlamydia in March 2017. I will treat patient empirically secondary to lymphadenopathy. Urinalysis with no signs of infection. Rocephin, azithromycin, Flagyl administered in the ER. Instructed patient to follow up with [facility] or [facility]. Instructed patient to follow up with primary care provider. Patient verbalizes understanding and agreement with treatment plan. Patient is medically cleared and stable for discharge. Discussed reasons to return to the emergency department. Patient agrees with treatment plan. The patients vital signs are stable and the patient is stable for outpatient follow-up and treatment. Patient discharged home, stable and in no acute distress. Diagnosis Primary Impression: Dysuria Referrals: [facility] Primary Care Physician [facility] Dept. Patient Instructions: Dysuria (ED), General Instructions, Sexually Transmitted Diseases (ED) Additional Instructions: Avoid sexual activity until you follow up with her primary care provider Inform all sexual partners within the past 3-6 months that they need to be evaluated and treated Use condoms every time you have sex You have been treated today for sexually transmitted infections in the ER Follow-up with primary care provider Follow-up with [facility] Department for complete STD/STI testing Return to the emergency department immediately with worsening of symptoms Med/Other Pt SpecificInfo: No Change to Meds, No Meds Exist/No RX given Disposition: DISCHARGE HOME Condition: Stable Caridad Hurd Jul 26, 2017 08:40
[2017-07-26] MEDS ORDERED: cefTRIAXone 250 MG VIAL IM ONE (08:45)
[2017-07-26] MEDS ORDERED: AZITHROMYCIN PWD FOR SUSP 1 GM PACKET PO ONE (08:45)
[2017-07-26] MEDS ORDERED: metroNIDAZOLE 500 MG TAB PO ONE (08:45)
[2017-07-26] MEDS ORDERED: LIDOCAINE HCL 1% 50 ML VIAL IM ONE (08:45)
[2017-07-26 16:43] LABS: CHLAMYDIA PCR NOT DETECTED (NOT DETECT); NEISSERIA PCR NOT DETECTED (NOT DETECT)
== END 2017-07-26 10:00 | disposition home or self-care (01) ==
LOC: NEPD 07:44
DX: R30.0 Dysuria (principal); Z21 Asymptomatic human immunodeficiency virus [HIV] infection status
CPT/HCPCS: 81001; 87491; 87591; 96372; 99284; J0696

== ENCOUNTER 2017-07-28 10:15 | Emergency (ER) | payer OTHER ==
[~2017-07-28] VITALS: Ht 180.3 cm; Wt 71.0 kg
[2017-07-28 10:16] VITALS: BP 122/75; PULSE 86; RESP 18; TEMP 98.4; O2SAT 96
[2017-07-28] MEDS ORDERED: IOHEXOL 350 MG/ML 10 ML VIAL (for RAD DIAG) IVCONTRAST ONE (10:16)
[2017-07-28] MEDS ORDERED: hiv med PO (10:32)
[2017-07-28] MEDS ORDERED: SODIUM CHLORIDE 0.9% FLUSH 10 ML FLUSH IVF PRN ×2 (10:45→11:15)
--- NOTE | 2017-07-28 10:51 | PD ---
HPI Chief Complaint: Pain: Acute or Chronic Time Seen by Provider: 10:42 Travel History International Travel<30 days: No Contact w/Intl Traveler<30days: No Traveled to known affect area: No History of Present Illness HPI 21 YO M with PMH of HIV, genital herpes presents to the ED for evaluation of 3 day history of dysuria, penile pain and "lump" in left groin. Pain is described as constant, rated 4/10. No alleviating or exacerbating factors reported. He denies F/C, N/V, abdominal pain, penile discharge, testicular pain, changes in bowel habits, back pain. He states that he went to an urgent care and was told that he has an inguinal hernia. He is unsure of his last CD count or viral load , but states "It's not undetectable." He endorses compliance with his antiviral medications. He endorses protected sex with both male and female partners. The patient was seen in the ED earlier this week with complaint of dysuria. He was empirically treated for GC, chlamydia with Rocephin, azithromycin and Flagyl. PFSH Past Medical History Cardiovascular Problems: Yes (RECURRENT CHEST PAIN UNKNOWN DIAGNOSIS) Developmental Delay: No Diminished Hearing: No GERD: Yes Genitourinary: Yes (GENITAL HERPES) Immune Disorder: Yes (HIV) Musculoskeletal: Yes (BACK PAIN) Immunizations Current: No Seizures: Yes Tetanus Vaccination: > 5 Years Past Surgical History Surgical History: No Previous Surgery Social History Alcohol Use: No Tobacco Use: No Substance Use: No ( ) Allergies-Medications (Allergen,Severity, Reaction): Coded Allergies: tomato (Unverified Allergy, Severe, 07/28/17) *MDRO Multi-Drug Resistant Organism (Verified Adverse Reaction, Unknown, 07/28/17) MRSA (wound) - 09/2015 Reported Meds & Prescriptions Reported Meds & Active Scripts Active Acyclovir 800 Mg Tab 800 Mg PO BID 5 Days Cipro (Ciprofloxacin HCl) 500 Mg Tab 500 Mg PO BID 7 Days Keppra Liq (Levetiracetam) 500 Mg/5 Ml Soln 500 Mg PO BID Reported [hiv med ] PO HS Review of Systems Except as stated in HPI: all other systems reviewed are Neg Physical Exam Narrative GENERAL: Well-nourished, well-developed thin black male in no acute distress. Texting on his phone throughout the course of the exam. SKIN: Focused skin assessment warm/dry. HEAD: Normocephalic. EYES: No scleral icterus. No injection or drainage. NECK: Supple, trachea midline. No JVD or lymphadenopathy. CARDIOVASCULAR: Regular rate and rhythm without murmurs, gallops, or rubs. RESPIRATORY: Breath sounds equal bilaterally. No accessory muscle use. GASTROINTESTINAL: Abdomen soft, nondistended. Active bowel sounds. TTP of left inguinal area. 2 cm tender, mobile mass noted, suspicious for LAD. Unable to palpate the inguinal canal 2/2 pain. GENITOURINARY: Circumcised. Testes descended bilaterally without evidence of rotation. Scan scattered, pink lesions, consistent with herpes. No erythema. No urethral discharge. MUSCULOSKELETAL: No cyanosis, or edema. Moves easily from sitting to standing positions. BACK: Nontender without obvious deformity. No CVA tenderness. Data Data Last Documented VS Vital Signs Date Time Temp Pulse Resp B/P (MAP) Pulse Ox O2 Delivery O2 Flow Rate FiO2 07/28/17 10:16 98.4 86 18 122/75 (91) 96 Room Air Orders Orders Ua Includes Microscopic (07/28/17 10:44) Gc And Chlamydia Pcr (07/28/17 10:44) Sodium Chloride 0.9% Flush (Ns Flush) (07/28/17 10:45) Basic Metabolic Panel (Bmp) (07/28/17 11:09) Complete Blood Count With Diff (07/28/17 11:09) Iv Access Insert/Monitor (07/28/17 11:09) Sodium Chloride 0.9% Flush (Ns Flush) (07/28/17 11:15) Ct Abd/Pel W Iv Contrast(Rout) (07/28/17 11:09) Ketorolac Inj (Toradol Inj) (07/28/17 11:15) Iohexol 350 Inj (Omnipaque 350 Inj) (07/28/17 10:16) Ed Discharge Order (07/28/17 13:02) Labs Laboratory Tests Test 07/28/17 11:10 07/28/17 12:05 White Blood Count 3.3 TH/MM3 Red Blood Count 5.44 MIL/MM3 Hemoglobin 15.1 GM/DL Hematocrit 45.6 % Mean Corpuscular Volume 83.9 FL Mean Corpuscular Hemoglobin 27.8 PG Mean Corpuscular Hemoglobin Concent 33.2 % Red Cell Distribution Width 13.7 % Platelet Count 256 TH/MM3 Mean Platelet Volume 7.8 FL Neutrophils (%) (Auto) 43.1 % Lymphocytes (%) (Auto) 39.2 % Monocytes (%) (Auto) 13.5 % Eosinophils (%) (Auto) 2.9 % Basophils (%) (Auto) 1.3 % Neutrophils # (Auto) 1.4 TH/MM3 Lymphocytes # (Auto) 1.3 TH/MM3 Monocytes # (Auto) 0.4 TH/MM3 Eosinophils # (Auto) 0.1 TH/MM3 Basophils # (Auto) 0.0 TH/MM3 CBC Comment DIFF FINAL Differential Comment Urine Color YELLOW Urine Turbidity CLEAR Urine pH 7.0 Urine Specific [place] 1.031 Urine Protein TRACE mg/dL Urine Glucose (UA) NEG mg/dL Urine Ketones TRACE mg/dL Urine Occult Blood NEG Urine Nitrite NEG Urine Bilirubin NEG Urine Urobilinogen 8.0 MG/DL Urine Leukocyte Esterase NEG Urine RBC 3 /hpf Urine WBC 3 /hpf Urine Mucus FEW /lpf Blood Urea Nitrogen 6 MG/DL Creatinine 0.96 MG/DL Random Glucose 83 MG/DL Calcium Level 8.9 MG/DL Sodium Level 138 MEQ/L Potassium Level 4.0 MEQ/L Chloride Level 105 MEQ/L Carbon Dioxide Level 27.8 MEQ/L Anion Gap 5 MEQ/L Estimat Glomerular Filtration Rate 121 ML/MIN [facility] Medical Decision Making Medical Screen Exam Complete: Yes Emergency Medical Condition: Yes Differential Diagnosis STI versus UTI versus LAD versus inguinal hernia versus other Narrative Course 21 YO M with PMH of HIV, genital herpes presents to the ED for evaluation of 3 day history of dysuria, penile pain and "lump" in left groin. Constant, rated 4/ 10. He denies F/C, N/V, abdominal pain, penile discharge, testicular pain, changes in bowel habits, back pain. He is unsure of his last CD count or viral load, but states "It's not undetectable." He endorses compliance with his antiviral medications. He endorses protected sex with both male and female partners. The patient was seen in the ED earlier this week with complaint of dysuria. He was empirically treated for GC, chlamydia with Rocephin, azithromycin and Flagyl. Vitals within normal limits. On exam the patient is nontoxic appearing. He does have palpable lymphadenopathy in the bilateral groins, left greater than right. exam is unremarkable. IV was established. Patient was administered 30 mg of Toradol IV. No concerning abnormalities a CBC, CMP, UA. I reviewed the patient's record and serology is negative for the last visit. Today's serology is pending. CT of the abdomen reveals diffuse bilateral inguinal lymphadenopathy but is otherwise unremarkable. I discussed the patient with Dr. Quigley. She evaluated the patient and feels that he is safe for discharge. The patient has an upcoming appointment with his HIV specialist. The patient has anal sex, will prescribe Cipro to cover for enteric skin infection. He is instructed to take antibiotics and antivirals as prescribed, take OTC anti-inflammatories as needed for pain and inflammation, use barrier methods with sexual partners. The patient indicated understanding of the instructions and is agreeable to the plan. He is stable and discharged home. Diagnosis Primary Impression: Inguinal lymphadenitis Additional Impression: Recurrent genital herpes simplex Referrals: Infectious Disease Specialist Primary Care Physician Patient Instructions: General Instructions, Lymphadenopathy (ED) Additional Instructions: Rest, hydrate. Return to normal, gentle activities as tolerated. Take antibiotics and antivirals as prescribed. USE A CONDOM EVERY TIME YOU HAVE SEX. Take anti-inflammatories (ibuprofen, naproxen) as directed on the label to reduce pain and inflammation. Follow-up with your primary care provider/infectious disease doctor for further evaluation. Return to the ED for any urgent or emergent medical condition. Med/Other Pt SpecificInfo: Prescription(s) given Scripts Acyclovir (Acyclovir) 800 Mg Tab 800 MG PO BID for Mgmt Viral Infection for 5 Days, #10 TAB 0 Refills Prov: Yareli Quigley DO 07/28/17 Ciprofloxacin (Cipro) 500 Mg Tab 500 MG PO BID for Infection for 7 Days, #14 TAB 0 Refills Prov: Yareli Quigley DO 07/28/17 Disposition: 01 DISCHARGE HOME Condition: Stable Yasmin Taylor Jul 28, 2017 10:51
[2017-07-28] MEDS ORDERED: KETOROLAC TROMETHAMINE 30 MG/ML (IVP) VIAL IV PUSH ONE (11:15)
[2017-07-28 11:31] LABS: AUTOMATED NEUTROPHIL # 1.4 TH/MM3 (1.8-7.7); BASOPHIL % 1.3 % (0.0-2.0); EOSINOPHIL # 0.1 TH/MM3 (0-0.4); EOSINOPHIL % 2.9 % (0.0-4.0); HEMATOCRIT 45.6 % (39.0-51.0); HEMO FLAGS DIFF FINAL; LYMPH % 39.2 % (9.0-44.0); LYMPHOCYTE # 1.3 TH/MM3 (1.0-4.8); MEAN CELL VOLUME 83.9 FL (80.0-100.0); MEAN CORPUSCULAR HEMOGLOBIN 27.8 PG (27.0-34.0); MEAN CORPUSCULAR HGB CONC 33.2 % (32.0-36.0); MONO % 13.5 % (0.0-8.0); NEUT % 43.1 % (16.0-70.0); PLATELET COUNT 256 TH/MM3 (150-450); RED BLOOD COUNT 5.44 MIL/MM3 (4.50-5.90); RED CELL DISTRIBUTION WIDTH 13.7 % (11.6-17.2); WHITE BLOOD COUNT 3.3 TH/MM3 (4.0-11.0)
[2017-07-28 11:34] LABS: BLOOD, URINE NEG (NEG); GLUCOSE,URINE NEG (NEG); KETONE, URINE TRACE mg/dL (NEG); MUCUS URINE FEW /lpf (OCC); NITRITE,URINE NEG (NEG); URINE COLOR YELLOW (YELLW/STRAW)
[2017-07-28 12:33] LABS: BICARBONATE 27.8 MEQ/L (21.0-32.0)
--- NOTE | 2017-07-28 12:49 | RADRPT ---
EXAM DATE/TIME: 07/28/2017 12:13 [place] COMPARISON: CT ABDOMEN & PELVIS W CONTRAST, April 28, 2015, 4:58. INDICATIONS : Left groin pain. IV CONTRAST: 75 cc Omnipaque 350 (iohexol) IV ORAL CONTRAST: No oral contrast ingested. RADIATION DOSE: 6.76 CTDIvol (mGy) MEDICAL HISTORY : Seizures. HIV. SURGICAL HISTORY : None. ENCOUNTER: Initial ACUITY: 1 day PAIN SCALE: 4/10 LOCATION: Left inguinal TECHNIQUE: Volumetric scanning of the abdomen and pelvis was performed. Using automated exposure control and ad justment of the mA and/or kV according to patient size, radiation dose was kept as low as reasonably achievable to obtain optimal diagnostic quality images. DICOM format image data is available electro nically for review and comparison. FINDINGS: LOWER LUNGS: The visualized lower lungs are clear. LIVER: Homogeneous density without lesion. There is no dilation of the biliary tree. No calcified gallston es. SPLEEN: Splenomegaly is noted. PANCREAS: Within normal limits. KIDNEYS: Normal in size and shape. There is no mass, stone or hydronephrosis. ADRENAL GLANDS: Within normal limits. VASCULAR: There is no aortic aneurysm. BOWEL/MESENTERY: The stomach, small bowel, and colon demonstrate no acute abnormality. There is no free intraperitone al air or fluid. ABDOMINAL WALL: Within normal limits. RETROPERITONEUM: There is no lymphadenopathy. BLADDER: No wall thickening or mass. REPRODUCTIVE: Within normal limits. INGUINAL: Extensive bilateral inguinal lymphadenopathy is noted. No inguinal hernia is noted. MUSCULOSKELETAL: Scoliosis of the lumbar spine is noted. CONCLUSION: 1. Extensive bilateral inguinal lymphadenopathy. 2. Splenomegaly. 3. Scoliosis of lumbar spine. Maciel Negron MD on July 28, 2017 at 12:42 Board Certified Radiologist. This report was verified electronically.
[2017-07-28] MEDS ORDERED: ACYC800T PO (13:07)
[2017-07-28] MEDS ORDERED: CIPR-9 PO (13:07)
[2017-07-28 13:50] LABS: CHLAMYDIA PCR NOT DETECTED (NOT DETECT); NEISSERIA PCR NOT DETECTED (NOT DETECT)
== END 2017-07-28 13:20 | disposition home or self-care (01) ==
LOC: NEPD 10:15
DX: I88.9 Nonspecific lymphadenitis, unspecified (principal); A60.00 Herpesviral infection of urogenital system, unspecified; N48.89 Other specified disorders of penis; Z21 Asymptomatic human immunodeficiency virus [HIV] infection status; Z86.79 Personal history of other diseases of the circulatory system; Z87.19 Personal history of other diseases of the digestive system; Z87.448 Personal history of other diseases of urinary system; Z87.39 Personal history of other diseases of the musculoskeletal system and connective tissue; Z86.69 Personal history of other diseases of the nervous system and sense organs
CPT/HCPCS: 74177; 80048; 81001; 85025; 87491; 87591; 96374; 99285; J1885; Q9967

== ENCOUNTER 2017-08-27 23:08 | Emergency (ER) | payer OTHER ==
[~2017-08-27 23:08] MED LIST changes: +ACYC800T PO; +CIPR-9 PO; -IBUP800T23 PO; +hiv med PO
[2017-08-27 23:10] VITALS: BP 134/77; PULSE 76; RESP 16; TEMP 98.7; O2SAT 99
--- NOTE | 2017-08-27 23:34 | PD ---
HPI Chief Complaint: Lump, Cyst, Hernia Time Seen by Provider: 23:22 Travel History International Travel<30 days: No Contact w/Intl Traveler<30days: No Traveled to known affect area: No History of Present Illness HPI Patient is a 21-year-old male who presents to emergency room complaints of left- sided inguinal hernia which he has noticed for the past 2 months. Patient reports that this bulge in his left groin has just been getting bigger, reports concerns as he had some pain to the area today. Patient denies any penile discharge, denies any abdominal pain, denies any nausea or vomiting. Patient with no other complaints. PFSH Past Medical History Medical History: Denies Significant Hx Cardiovascular Problems: Yes (RECURRENT CHEST PAIN UNKNOWN DIAGNOSIS) Developmental Delay: No Diminished Hearing: No GERD: Yes Genitourinary: Yes (GENITAL HERPES) Immune Disorder: Yes (HIV) Musculoskeletal: Yes (BACK PAIN) Immunizations Current: No Seizures: Yes Past Surgical History Surgical History: No Previous Surgery Social History Alcohol Use: No Tobacco Use: No Substance Use: No ( ) Allergies-Medications (Allergen,Severity, Reaction): Coded Allergies: tomato (Verified Allergy, Severe, 08/27/17) *MDRO Multi-Drug Resistant Organism (Verified Adverse Reaction, Unknown, 08/27/17) MRSA (wound) - 09/2015 Reported Meds & Prescriptions Reported Meds & Active Scripts Active Acyclovir 800 Mg Tab 800 Mg PO BID 5 Days Cipro (Ciprofloxacin HCl) 500 Mg Tab 500 Mg PO BID 7 Days Keppra Liq (Levetiracetam) 500 Mg/5 Ml Soln 500 Mg PO BID Reported [hiv med ] PO HS Review of Systems General / Constitutional: No: Fever Eyes: No: Visual changes HENT: No: Headaches Cardiovascular: No: Chest Pain or Discomfort Respiratory: No: Shortness of Breath Gastrointestinal: No: Abdominal Pain Genitourinary: Positive: Other (left-sided inguinal hernia), No: Dysuria Musculoskeletal: No: Pain Skin: No Rash Neurologic: No: Weakness Psychiatric: No: Depression Endocrine: No: Polydipsia Hematologic/Lymphatic: No: Easy Bruising Physical Exam Narrative GENERAL: No acute distress, nontoxic SKIN: Focused skin assessment warm/dry. HEAD: Atraumatic. Normocephalic. EYES: Pupils equal and round. No scleral icterus. No injection or drainage. ENT: No nasal bleeding or discharge. Mucous membranes pink and moist. NECK: Trachea midline. No JVD. CARDIOVASCULAR: Regular rate and rhythm. No murmur appreciated. RESPIRATORY: No accessory muscle use. Clear to auscultation. Breath sounds equal bilaterally. GASTROINTESTINAL: Abdomen soft, non-tender, nondistended. Hepatic and splenic margins not palpable. : Exam performed with RN at bedside: Patient with reducible left-sided inguinal hernia MUSCULOSKELETAL: No obvious deformities. No clubbing. No cyanosis. No edema. NEUROLOGICAL: Awake and alert. No obvious cranial nerve deficits. Motor grossly within normal limits. Normal speech. PSYCHIATRIC: Appropriate mood and affect; insight and judgment normal. Data Data Last Documented VS Vital Signs Date Time Temp Pulse Resp B/P (MAP) Pulse Ox O2 Delivery O2 Flow Rate FiO2 08/27/17 23:10 98.7 76 16 134/77 (96) 99 Room Air MDM Medical Decision Making Medical Screen Exam Complete: Yes Emergency Medical Condition: Yes Medical Record Reviewed: Yes Interpretation(s) Vital Signs Date Time Temp Pulse Resp B/P (MAP) Pulse Ox O2 Delivery O2 Flow Rate FiO2 08/27/17 23:10 98.7 76 16 134/77 (96) 99 Room Air Differential Diagnosis Inguinal hernia Narrative Course Patient with reducible left-sided inguinal hernia. Patient understands that he needs to follow-up with Gen. surgery for outpatient surgical correction of his hernia. Signs and symptoms of when to return to the emergency room was reviewed patient in detail. He will return to the emergency room as needed. Diagnosis Primary Impression: Inguinal hernia of left side without obstruction or gangrene Referrals: Nate Whitman MD Patient Instructions: General Instructions Additional Instructions: Please follow up with general surgery for surgical correction of your inguinal hernia Return to ER as needed or if you hernia becomes incarcerated and is non reducible Disposition: 01 DISCHARGE HOME Condition: Stable Radha Flores Aug 27, 2017 23:34
== END 2017-08-28 00:27 | disposition home or self-care (01) ==
LOC: NEPD 23:08
DX: K40.90 Unilateral inguinal hernia, without obstruction or gangrene, not specified as recurrent (principal); Z21 Asymptomatic human immunodeficiency virus [HIV] infection status; Z87.19 Personal history of other diseases of the digestive system; Z87.448 Personal history of other diseases of urinary system; Z87.39 Personal history of other diseases of the musculoskeletal system and connective tissue; Z86.69 Personal history of other diseases of the nervous system and sense organs
CPT/HCPCS: 99282

== ENCOUNTER 2017-11-03 09:41 | Observation (INO) | payer OTHER, MEDICAID ==
[2017-11-03] VITALS (9 sets, daily range): BP systolic 134–139; BP diastolic 79–92; PULSE 72–85; RESP 18; TEMP 99.3; O2SAT 96–100
[~2017-11-03] VITALS: Ht 180.3 cm; Wt 65.0 kg
[2017-11-03] MEDS ORDERED: ONDANSETRON HCL 4 MG/2 ML VIAL ONE (09:47)
[2017-11-03] MEDS ORDERED: ceFAZolin 2 GM PREMIX 50 ML ONE ×2 (09:47→20:37)
[2017-11-03] MEDS ORDERED: MORPHINE SULFATE 4 MG/ML INJ ONE (09:47)
[2017-11-03] MEDS ORDERED: DIPHTH/TETANUS/ACEL PERTUSSIS (BOOSTER) 0.5 ML VIAL/PFS IM ONE ×2 (09:48→11:51)
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
[2017-11-03] MEDS ORDERED: IOHEXOL 350 MG/ML 10 ML VIAL (for RAD DIAG) IVCONTRAST ONE (10:15)
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
[2017-11-03 10:21] LABS: AUTOMATED NEUTROPHIL # 5.8 TH/MM3 (1.8-7.7); BASOPHIL % 0.5 % (0.0-2.0); EOSINOPHIL # 0.1 TH/MM3 (0-0.4); EOSINOPHIL % 0.9 % (0.0-4.0); HEMATOCRIT 43.8 % (39.0-51.0); HEMOGLOBIN 14.7 GM/DL (13.0-17.0); LYMPH % 16.6 % (9.0-44.0); LYMPHOCYTE # 1.3 TH/MM3 (1.0-4.8); MEAN CELL VOLUME 85.9 FL (80.0-100.0); MEAN CORPUSCULAR HEMOGLOBIN 28.9 PG (27.0-34.0); MEAN CORPUSCULAR HGB CONC 33.6 % (32.0-36.0); MEAN PLATELET VOLUME 8.2 FL (7.0-11.0); MONO % 6.2 % (0.0-8.0); MONOCYTE # 0.5 TH/MM3 (0-0.9); NEUT % 75.8 % (16.0-70.0); PLATELET COUNT 253 TH/MM3 (150-450); RED CELL DISTRIBUTION WIDTH 13.3 % (11.6-17.2); WHITE BLOOD COUNT 7.6 TH/MM3 (4.0-11.0)
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
[2017-11-03] MEDS ORDERED: ONDANSETRON HCL 4 MG/2 ML VIAL IV PUSH ONE (10:30)
[2017-11-03] MEDS ORDERED: ceFAZolin 2 GM PREMIX 50 ML IV ONE (10:30)
[2017-11-03] MEDS ORDERED: MORPHINE SULFATE 2 MG/ML INJ IV ONE (10:30)
[2017-11-03] MEDS ORDERED: SODIUM CHLOR 0.9% 1000 ML INJ 1,000 ML IV SCH (10:30)
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
[2017-11-03] MEDS ORDERED: LEVE500 PO (10:34)
[2017-11-03] MEDS ORDERED: hiv med (10:35)
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
[2017-11-03] MEDS ORDERED: LIDOCAINE HCL 1% 50 ML VIAL INFIL ONE (11:15)
[2017-11-03] MEDS ORDERED: SODIUM CHLOR 0.9% 1000 ML INJ 1,000 ML IV ONE (11:30)
[2017-11-03] MEDS ORDERED: levETIRAcetam 500 MG TAB PO ONE (11:30)
[2017-11-03] MEDS ORDERED: MORPHINE SULFATE 2 MG/ML INJ IV PUSH ONE (11:30)
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
--- NOTE | 2017-11-03 11:40 | PD ---
Physical Exam Date Seen by Provider: Nov 03, 2017 Time Seen by Provider: 11:37 Data Data Last Documented VS Vital Signs Date Time Temp Pulse Resp B/P (MAP) Pulse Ox O2 Delivery O2 Flow Rate FiO2 11/03/17 10:30 (104) 99 Nasal Cannula 2.00 11/03/17 10:29 72 18 Orders Orders Morphine Inj (Morphine Inj) (11/03/17 09:47) Cefazolin 2 Gm Premix (Ancef 2 Gm Premix (11/03/17 09:47) Ondansetron Inj (Zofran Inj) (11/03/17 09:47) Ldep-Zlh-Fanban (Booster) Inj (Boostrix (11/03/17 09:48) I-Stat Profile (11/03/17 09:49) Complete Blood Count With Diff (11/03/17 09:49) Prothrombin Time / Inr (Pt) (11/03/17 09:49) Act Partial Throm Time (Ptt) (11/03/17 09:49) Type And Screen (11/03/17 09:49) Alcohol (Ethanol) (11/03/17 09:49) Chest, Single Ap (11/03/17 09:49) Pelvis, Ap Only (Routine) (11/03/17 09:49) Ct Brain W/O Iv Contrast(Rout) (11/03/17 09:49) Ct Cerv Spine W/O Contrast (11/03/17 09:49) Iv Access Insert/Monitor (11/03/17 09:49) Ecg Monitoring (11/03/17 09:49) Oximetry (11/03/17 09:49) Oxygen Administration (11/03/17 09:49) Drug Screen, Random Urine (11/03/17 09:49) Hand, Limited (2vws) (11/03/17 ) Ct Abd/Pel W Iv Contrast(Rout) (11/03/17 ) Place In Observation (11/03/17 ) Shoulder, One View (11/03/17 ) Iohexol 350 Inj (Omnipaque 350 Inj) (11/03/17 10:15) Trauma Office Use Only (11/03/17 10:17) Cefazolin 2 Gm Premix (Ancef 2 Gm Premix (11/03/17 10:30) Uyzp-Odi-Gtnagk (Booster) Inj (Boostrix (11/03/17 10:30) Ondansetron Inj (Zofran Inj) (11/03/17 10:30) Morphine Inj (Morphine Inj) (11/03/17 10:30) Sodium Chlor 0.9% 1000 Ml Inj (Ns 1000 M (11/03/17 10:30) Sling And Swathe (11/03/17 ) Fiberglass Splint Forearm Adul (11/03/17 ) Sling And Swathe (11/03/17 ) Admit Order (Ed Use Only) (11/03/17 11:28) Morphine Inj (Morphine Inj) (11/03/17 11:30) Levetiracetam (Keppra) (11/03/17 11:30) Sodium Chlor 0.9% 1000 Ml Inj (Ns 1000 M (11/03/17 11:30) Labs Laboratory Tests Test 11/03/17 09:45 White Blood Count 7.6 TH/MM3 Red Blood Count 5.10 MIL/MM3 Hemoglobin 14.7 GM/DL Bedside Hemoglobin 15.6 G/DL Hematocrit 43.8 % Bedside Hematocrit 46.0 % Mean Corpuscular Volume 85.9 FL Mean Corpuscular Hemoglobin 28.9 PG Mean Corpuscular Hemoglobin Concent 33.6 % Red Cell Distribution Width 13.3 % Platelet Count 253 TH/MM3 Mean Platelet Volume 8.2 FL Neutrophils (%) (Auto) 75.8 % Lymphocytes (%) (Auto) 16.6 % Monocytes (%) (Auto) 6.2 % Eosinophils (%) (Auto) 0.9 % Basophils (%) (Auto) 0.5 % Neutrophils # (Auto) 5.8 TH/MM3 Lymphocytes # (Auto) 1.3 TH/MM3 Monocytes # (Auto) 0.5 TH/MM3 Eosinophils # (Auto) 0.1 TH/MM3 Basophils # (Auto) 0.0 TH/MM3 CBC Comment DIFF FINAL Differential Comment Hematology Comments Bedside Sodium 144 MMOL/L Bedside Potassium 3.5 MMOL/L Bedside Chloride 104 MMOL/L Bedside Blood Urea Nitrogen 5 MG/DL Bedside Creatinine 0.9 MG/DL Bedside Glucose 101 MG/DL Ethyl Alcohol Level LESS THAN 3 MG/DL [facility] Supervised Visit with ANEL: No Narrative Course I was asked to evaluate this patient's right thumb laceration. Dr. Grullon initially saw this patient. Please see his note for full details. On my exam of the right upper extremity: There is a 2+ radial pulse. There is a 4-6 cm laceration traversing the dorsal aspect of the right thumb. There are multiple smaller, more superficial lacerations of the dorsal aspect of the hand. Patient is unable to extend the distal tip of the thumb. Suspect extensor pollicis longus injury/transection. He is able to oppose the thumb to each digit strongly. Sensation intact to light touch distally. Cap refill less than 2 seconds. Exam is somewhat limited by the patient's pain. Laceration repair was performed. Please see my procedure note for details. Consult was placed with the on-call hand surgeon, Dr. Schmitz. Dr. Grullon retains care of this patient. Please see his note for disposition. Procedures Procedure Narrative LACERATION LOCATION: Dorsal aspect right thumb LENGTH: 6 cm NUMBER OF STITCHES/MIKAELA: 10 REPAIR: The area of the laceration was prepped with Betadine and sterilely draped. A digital block was performed and the proximal portion of the laceration was infiltrated with 1% lidocaine. The wound was copiously irrigated and explored. The extensor pollicis longus is transected. No evidence of foreign body or neurovascular injury. The wound was closed using 5- 0 Prolene . This was a single layer repair. A sterile dressing was applied. The patient was advised to keep the dressing clean and dry. Patient tolerated the procedure well. LACERATION LOCATION: Dorsal aspect right thumb, proximal LENGTH: 4 cm NUMBER OF STITCHES/MIKAELA: 5 REPAIR: The area of the laceration was prepped with Betadine and sterilely draped. The laceration was infiltrated with 1% lidocaine. The wound was copiously irrigated and explored without evidence of foreign body, tendon injury or neurovascular injury. The wound was closed using 5-0 Prolene. This was a single layer repair. A sterile dressing was applied. The patient was advised to keep the dressing clean and dry. Patient tolerated the procedure well. Diagnosis Primary Impression: MVC (motor vehicle collision) Qualified Codes: V87.7XXA - Person injured in collision between other specified motor vehicles (traffic), initial encounter Additional Impressions: Scalp laceration Qualified Codes: S01.01XA - Laceration without foreign body of scalp, initial encounter Laceration of hand, right, complicated Qualified Codes: S61.411A - Laceration without foreign body of right hand, initial encounter Yasmin Taylor Nov 03, 2017 11:40
[2017-11-03] MEDS: DIPHTH/TETANUS/ACEL PERTUSSIS (BOOSTER) 0.5 ML VIAL/PFS IM ONE ×2 (11:55→12:52)
[2017-11-03] MEDS ORDERED: LIDOCAINE HCL 1% PF 5 ML SYRINGE OTHER ONE (12:00)
[2017-11-03] MEDS ORDERED: LACTATED RINGER'S 1000 ML INJ 1,000 ML IV ONE (12:00)
[2017-11-03] MEDS ORDERED: PHENYLEPH/NS 1000 MCG/10 ML SYR IV ONE (12:00)
[2017-11-03] MEDS ORDERED: ROCURONIUM INJ 50 MG/5 ML SYRINGE IV PUSH ONE (12:00)
[2017-11-03] MEDS ORDERED: PROPOFOL 200 MG/20 ML AMP IV ONE (12:00)
[2017-11-03] MEDS ORDERED: ONDANSETRON HCL 4 MG/2 ML VIAL IV ONE (12:00)
[2017-11-03] MEDS ORDERED: SUCCINYLCHOLINE CHLORIDE 200 MG/10 ML VIAL IV ONE (12:00)
[2017-11-03] MEDS ORDERED: NEOSTIGMINE 5 MG/5 ML SYRINGE IV PUSH ONE (12:00)
[2017-11-03] MEDS ORDERED: GLYCOPYRROLATE 1 MG/5 ML SYRINGE IV PUSH ONE (12:00)
[2017-11-03] MEDS ORDERED: SODIUM CHLORIDE 0.9% FLUSH 10 ML FLUSH IV FLUSH PRN (12:15)
[2017-11-03] MEDS ORDERED: LIDOCAINE HCL 1% 30 ML VIAL INFIL ONE (12:15)
[2017-11-03] MEDS ORDERED: ACETAMINOPHEN 325 MG TAB PO PRN (12:30)
[2017-11-03] MEDS ORDERED: NALOXONE HCL 0.4 MG/ML AMP IV PUSH PRN (12:30)
[2017-11-03] MEDS ORDERED: MORPHINE SULFATE 8 MG/ML INJ IV PUSH PRN (12:30)
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
[2017-11-03] MEDS ORDERED: levETIRAcetam INJ 500 MG in SODIUM CHLORIDE 0.9% INJ 100 ML IV SCH (15:00)
[2017-11-03] MEDS ORDERED: LACTATED RINGER'S 1000 ML IV PRN (16:00)
[2017-11-03] MEDS ORDERED: SODIUM CHLORID 0.9% 500 ML IV PRN (16:00)
[2017-11-03] MEDS ORDERED: CHLORHEXIDINE GLUCONATE 2 % 1 PACK (2 CLOTHS) TOPICAL PRN (16:15)
[2017-11-03] MEDS ORDERED: POVIDONE IODINE 5% (ANTISEPSIS KIT) 4 APPLICATIONS EACH NARE PRN (16:15)
[2017-11-03] MEDS ORDERED: METOPROLOL TARTRATE 25 MG TAB PO PRN (16:15)
[2017-11-03 16:43] LABS: BILIRUBIN, URINE NEG (NEG); BLOOD, URINE NEG (NEG); GLUCOSE,URINE NEG (NEG); KETONE, URINE 10 mg/dL (NEG); MUCUS URINE FEW /lpf (OCC); NITRITE,URINE NEG (NEG); PH, URINE 6.5 (5.0-8.5); URINE COLOR YELLOW (YELLW/STRAW); URINE LEUKOCYTE ESTERASE NEG (NEG)
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
[2017-11-03] MEDS: MORPHINE SULFATE 4 MG/ML INJ IV PUSH PRN (18:01)
--- NOTE | 2017-11-03 18:05 | RADRPT ---
EXAM DATE/TIME: 11/03/2017 16:01 [facility] COMPARISON: No previous studies available for comparison. INDICATIONS : Seizures. MEDICAL HISTORY : Seizures. SURGICAL HISTORY : None. ENCOUNTER: Subsequent ACUITY: 1 day PAIN SCORE: 3/10 LOCATION: cranial TECHNIQUE: Multiplanar, multisequence MRI of the brain was performed without contrast. FINDINGS: CEREBRUM: The ventricles are normal for age. No evidence of midline shift, mass lesion, hemorrhage or acute in farction. No extraaxial fluid collections are seen. The pituitary gland and suprasellar cistern are normal in configuration. WHITE MATTER: No significant signal abnormalities are seen in the white matter. POSTERIOR FOSSA: The cerebellum and brainstem are intact. The 4th ventricle is midline. The cerebellopontine angle is unremarkable. The cerebellar tonsils are normal in position. DIFFUSION IMAGING: No focal areas of restricted diffusion are seen. No evidence of acute infarction. EXTRACRANIAL: The visualized portions of the orbits and paranasal sinuses are unremarkable. CONCLUSION: Examination within normal limits. Nate Ventura MD on November 03, 2017 at 18:00 Board Certified Radiologist. This report was verified electronically.
[2017-11-03 18:13] LABS: INTERNATIONAL NORMALIZED RATIO 1.2 RATIO; PROTHROMBIN TIME - PATIENT 11.7 SEC (9.8-11.6)
[2017-11-03 18:16] LABS: MAGNESIUM 1.9 MG/DL (1.5-2.5)
[2017-11-03] MEDS ORDERED: NEOMYCIN/POLYMYXIN 1 ML G.U. IRRIGANT ONE (19:38)
[2017-11-03] MEDS ORDERED: LIDOCAINE HCL 2% 50 ML VIAL ONE (19:39)
[2017-11-03] MEDS ORDERED: MIDAZOLAM HCL 2 MG/2 ML VIAL ONE (20:14)
[2017-11-03] MEDS: SODIUM CHLORIDE 0.9% FLUSH 10 ML FLUSH IV FLUSH SCH (21:00)
--- NOTE | 2017-11-03 21:37 | EKG ---
Date Performed: 11/03/2017 Time Performed: 13:27:46 PTAGE: 89 years EKG: Sinus rhythm POSSIBLE RIGHT VENTRICULAR CONDUCTION DELAY BORDERLINE ECG NO PREVIOUS TRACING DOCTOR: Gretchen Mathews Interpretating Date/Time 11/03/2017 21:36:31
[2017-11-03] MEDS ORDERED: DO NOT ADM ANY ANTICOAGULANT DRUGS PRN (22:30)
[2017-11-04] VITALS (12 sets, daily range): BP systolic 125–166; BP diastolic 77–91; PULSE 69–93; RESP 16–24; TEMP 97.9–99.5; O2SAT 96–100
[2017-11-04] MEDS: MORPHINE SULFATE 2 MG/ML INJ IV PUSH PRN ×2 (02:30→08:40)
[2017-11-04] MEDS: levETIRAcetam INJ 100 ML IV SCH ×2 (02:30→16:01)
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
[2017-11-04 06:56] LABS: AUTOMATED NEUTROPHIL # 6.1 TH/MM3 (1.8-7.7); BASOPHIL % 0.3 % (0.0-2.0); EOSINOPHIL % 0.2 % (0.0-4.0); HEMATOCRIT 37.3 % (39.0-51.0); HEMOGLOBIN 12.5 GM/DL (13.0-17.0); LYMPH % 16.1 % (9.0-44.0); LYMPHOCYTE # 1.4 TH/MM3 (1.0-4.8); MEAN CELL VOLUME 85.3 FL (80.0-100.0); MEAN CORPUSCULAR HEMOGLOBIN 28.5 PG (27.0-34.0); MEAN CORPUSCULAR HGB CONC 33.4 % (32.0-36.0); MEAN PLATELET VOLUME 8.4 FL (7.0-11.0); MONO % 11.2 % (0.0-8.0); NEUT % 72.2 % (16.0-70.0); PLATELET COUNT 210 TH/MM3 (150-450); RED BLOOD COUNT 4.37 MIL/MM3 (4.50-5.90); RED CELL DISTRIBUTION WIDTH 13.3 % (11.6-17.2); WHITE BLOOD COUNT 8.5 TH/MM3 (4.0-11.0)
[2017-11-04 07:09] LABS: ALBUMIN 3.2 GM/DL (3.4-5.0); ALT (GPT) 23 U/L (12-78); AST (GOT) 39 U/L (15-37); BICARBONATE 24.5 MEQ/L (21.0-32.0); BLOOD UREA NITROGEN 5 MG/DL (7-18); CALCIUM 7.8 MG/DL (8.5-10.1); CHLORIDE 106 MEQ/L (98-107); CREATININE 0.89 MG/DL (0.60-1.30); GLOMERULAR FILTRATION RATE 89 ML/MIN (>89); GLUCOSE,RANDOM 80 MG/DL (74-106); SODIUM (NA) 138 MEQ/L (136-145)
[2017-11-04 07:19] LABS: ALKALINE PHOSPHATASE 54 U/L (45-117); TOTAL BILIRUBIN ADULT 1.4 MG/DL (0.2-1.0); TOTAL PROTEIN 8.6 GM/DL (6.4-8.2)
[2017-11-04] MEDS: SODIUM CHLOR 0.9% 1000 ML INJ 1,000 ML IV SCH ×2 (08:41→16:46)
[2017-11-04] MEDS: SODIUM CHLORIDE 0.9% FLUSH 10 ML FLUSH IV FLUSH SCH ×2 (09:00→20:01)
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
[2017-11-04] MEDS: MORPHINE SULFATE 4 MG/ML INJ IV PUSH PRN ×2 (12:19→21:42)
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
[2017-11-05] VITALS (10 sets, daily range): BP systolic 108–135; BP diastolic 56–90; PULSE 76–100; RESP 18–20; TEMP 97.1–99; O2SAT 95–97
[2017-11-05] MEDS: MORPHINE SULFATE 2 MG/ML INJ IV PUSH PRN ×3 (00:50→09:13)
[2017-11-05] MEDS: levETIRAcetam INJ 100 ML IV SCH ×2 (02:35→14:42)
[2017-11-05] MEDS: SODIUM CHLOR 0.9% 1000 ML INJ 1,000 ML IV SCH ×3 (02:35→21:42)
[2017-11-05 06:22] LABS: BASOPHIL % 0.4 % (0.0-2.0); EOSINOPHIL # 0.2 TH/MM3 (0-0.4); EOSINOPHIL % 3.4 % (0.0-4.0); HEMATOCRIT 37.4 % (39.0-51.0); HEMOGLOBIN 12.8 GM/DL (13.0-17.0); LYMPH % 17.5 % (9.0-44.0); LYMPHOCYTE # 1.1 TH/MM3 (1.0-4.8); MEAN CELL VOLUME 84.3 FL (80.0-100.0); MEAN CORPUSCULAR HEMOGLOBIN 28.9 PG (27.0-34.0); MEAN CORPUSCULAR HGB CONC 34.2 % (32.0-36.0); MEAN PLATELET VOLUME 7.9 FL (7.0-11.0); MONO % 13.4 % (0.0-8.0); MONOCYTE # 0.8 TH/MM3 (0-0.9); NEUT % 65.3 % (16.0-70.0); PLATELET COUNT 203 TH/MM3 (150-450); RED BLOOD COUNT 4.44 MIL/MM3 (4.50-5.90); RED CELL DISTRIBUTION WIDTH 13.4 % (11.6-17.2); WHITE BLOOD COUNT 6.2 TH/MM3 (4.0-11.0)
[2017-11-05 06:44] LABS: ALBUMIN 3.1 GM/DL (3.4-5.0); AST (GOT) 37 U/L (15-39); BICARBONATE 27.5 MEQ/L (21.0-32.0); BLOOD UREA NITROGEN 4 MG/DL (7-18); CALCIUM 8.2 MG/DL (8.5-10.1); CHLORIDE 103 MEQ/L (98-107); CREATININE 0.78 MG/DL (0.60-1.30); GLOMERULAR FILTRATION RATE 154 ML/MIN (>89); GLUCOSE,RANDOM 103 MG/DL (74-106); SODIUM (NA) 136 MEQ/L (136-145)
[2017-11-05 06:45] LABS: ALT (GPT) 19 U/L (9-52)
[2017-11-05 06:47] LABS: ALKALINE PHOSPHATASE 54 U/L (45-117); TOTAL BILIRUBIN ADULT 1.2 MG/DL (0.2-1.0); TOTAL PROTEIN 8.7 GM/DL (6.4-8.2)
[2017-11-05] MEDS ORDERED: CARBAMIDE PEROXIDE 6.5% OTIC SOLN 15 ML BTL EACH EAR ONE (09:00)
[2017-11-05] MEDS: SODIUM CHLORIDE 0.9% FLUSH 10 ML FLUSH IV FLUSH SCH ×2 (09:00→21:24)
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
[2017-11-05] MEDS ORDERED: oxyCODONE/ACETAMINOPHEN 5 MG/325 MG TAB PO PRN (11:15)
[2017-11-05] MEDS ORDERED: NALOXONE HCL 0.4 MG/ML AMP IV PUSH PRN (11:15)
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
[2017-11-05] MEDS: IBUPROFEN 600 MG TAB PO SCH ×3 (12:00→18:00)
[2017-11-05] MEDS ORDERED: KEPP10002 PO (12:29)
[2017-11-05] MEDS ORDERED: PERC5TAB12 PO (12:29)
[2017-11-05] MEDS: oxyCODONE/ACETAMINOPHEN 10 MG/325 MG TAB PO PRN (12:50)
[2017-11-05] MEDS ORDERED: [UNRECOGNIZED DRUG - SUPPLY] EXTERNAL (13:19)
[2017-11-05] MEDS ORDERED: BACI500O9 TOPICAL (13:19)
[2017-11-05] MEDS ORDERED: POTASSIUM CHLORIDE 10 MEQ CONTROLLED RELEASE TAB PO ONE (17:45)
[2017-11-06 00:46] VITALS: BP 123/62; PULSE 84; RESP 18; TEMP 98.5; O2SAT 96
[2017-11-06] MEDS: IBUPROFEN 600 MG TAB PO SCH ×3 (00:53→12:00)
[2017-11-06] MEDS: levETIRAcetam INJ 100 ML IV SCH ×2 (04:13→15:00)
[2017-11-06 04:15] VITALS: PULSE 74
[2017-11-06] MEDS: SODIUM CHLOR 0.9% 1000 ML INJ 1,000 ML IV SCH (05:23)
[2017-11-06] MEDS: SODIUM CHLORIDE 0.9% FLUSH 10 ML FLUSH IV FLUSH SCH (07:57)
[2017-11-06 08:00] VITALS: PULSE 73
[2017-11-06 08:30] VITALS: BP 122/60; PULSE 78; RESP 20; TEMP 98.2; O2SAT 96
[2017-11-06 08:35] LABS: BICARBONATE 27.9 MEQ/L (21.0-32.0); CALCIUM 8.1 MG/DL (8.5-10.1); CREATININE 0.8 MG/DL (0.60-1.30)
[2017-11-06] MEDS: oxyCODONE/ACETAMINOPHEN 10 MG/325 MG TAB PO PRN (10:01)
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
[2017-11-06 12:26] VITALS: BP 120/69; PULSE 80; RESP 20; TEMP 98.2; O2SAT 98
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
== END 2017-11-06 18:02 | disposition home or self-care (01) ==
LOC: NEPI 09:41 → NEDA 11:29 → EDBD 11:29 → MERGE 11:29 → NEPGCP 13:39
PROVIDERS: ADMIT Family Medicine; ATTEND Family Medicine
DX: S01.01XA Laceration without foreign body of scalp, initial encounter (principal); S66.221A Laceration of extensor muscle, fascia and tendon of right thumb at wrist and hand level, initial encounter; S61.011A Laceration without foreign body of right thumb without damage to nail, initial encounter; S42.101A Fracture of unspecified part of scapula, right shoulder, initial encounter for closed fracture; S12.401A Unspecified nondisplaced fracture of fifth cervical vertebra, initial encounter for closed fracture; I67.9 Cerebrovascular disease, unspecified; G40.909 Epilepsy, unspecified, not intractable, without status epilepticus; G89.29 Other chronic pain; R94.31 Abnormal electrocardiogram [ECG] [EKG]; M41.9 Scoliosis, unspecified; M48.00 Spinal stenosis, site unspecified; V48.5XXA Car driver injured in noncollision transport accident in traffic accident, initial encounter; Y92.410 Unspecified street and highway as the place of occurrence of the external cause; Z79.899 Other long term (current) drug therapy
CPT/HCPCS: 01810; 11044; 12004; 26410; 26516; 70450; 70551; 71045; 72125; 72170; 73020; 73120; 73552; 74177; 80048; 80053; 80177; 80307; 81001; 82948; 83735; 84100; 84443; 85025; 85610; 85730; 86592; 86593; 86780; 86850; 86900; 86901; 90471; 90715; 93005; 95819; 96361; 96365; 96366; 96367; 96375; 96376; 97110; 97162; 97530; 99291; G0378; G8987; G8988; J0330; J0690; J1953; J2250; J2270; J2370; J2405; J2710; J3010; J7030; J7120; L0150; L0172; L3808; Q9967; G0390